=== PATIENT | male | born 1955 | race Caucasian/White ===

== ENCOUNTER 2019-11-29 10:20 | Emergency (ER) | payer MEDICAID ==
[~2019-11-29] VITALS: Ht 170.2 cm; Wt 81.6 kg
--- NOTE | 2019-11-29 10:44 | Emergency Room Report ---
History of Present Illness General Chief Complaint: Palpitations Source: Patient Present Illness HPI 64-year-old male history of hypertension, rheumatoid, presents with new onset atrial fibrillation with RVR, symptoms started today he felt palpitations and his heart rate racing, no known aggravating or alleviating factors severity is moderate, constant patient denies any chest pain, no shortness of breath no nausea no vomiting, he was seen by his primary care doctor and brought in due to heart rate greater than 150 Allergies: Coded Allergies: No Known Allergies (Unverified , 11/29/19) Patient History Past Medical History: see triage record Reviewed Nursing Documentation: PMH: Agreed; PSxH: Agreed Review of Systems All Other Systems: negative except mentioned in HPI Physical Exam Sp02 EP Interpretation: reviewed, normal General Appearance: well appearing, no apparent distress, alert Head: normocephalic, atraumatic Eyes: bilateral eye PERRL, bilateral eye EOMI ENT: uvula midline, moist mucus membranes Neck: supple, thyroid normal, supple/symm/no masses Respiratory: lungs clear, no respiratory distress, no retraction, no accessory muscle use Cardiovascular #1: normal peripheral pulses, no edema, no gallop, no murmur, tachycardia, irregularly irregular Gastrointestinal: non tender, soft, no guarding, no rebound Musculoskeletal: normal inspection Neurologic: alert, oriented x3 Psychiatric: mood/affect normal Skin: no rash, warm/dry Procedures Critical Care Time Critical Care Time Given the critical condition in which the patient arrived, the patient was immediately assessed by myself and the nurse, and cardiac monitoring initiated due to the potential for rapid decompensation of the patient's clinical condition. During the course of the patient's stay, I spent a considerable amount of time at the bedside performing serial re-evaluations of the patient's hemodynamic and clinical status because of the recognized potential threat to life or limb in this condition. I then had a chance to review not only all of the available current laboratory and radiographic studies obtained today, but I also reviewed old records available to me at the time. Additionally, any ancillary information available including insole channeler records were reviewed. Sequential vital signs were obtained. Critical Care time of 33 minutes was performed exclusive of billable procedures. Medical Decision Making Diagnostic Impression: Primary Impression: Atrial fibrillation with RVR ER Course 64-year-old male presents with new onset atrial fibrillation, with RVR, patient given fluids, diltiazem, Plan for admission and work-up, blood work drawn Patient given diltiazem 30 mg with significant improvement in heart rate, heart rate dropped down to 110, to 90s Reevaluation at 11:56 AM patient states upon admission that he needs to take care of some errands before he can be admitted he states he will come back in 2 hours patient states he wants to leave AGAINST MEDICAL ADVICE The patient has requested to leave the ED against medical advice. The patient reason(s) for leaving include, but are not limited to, the following:"has to take care of home errands before he can be admitted"I believe this patient is of sound mind and competent to refuse medical care. The patient is responding and asking questions appropriately. The patient is oriented to person, place and time. The patient is not psychotic, delusional, suicidal, homicidal or hallucinating. The patient demonstrates a normal mental capacity to make decisions regarding their healthcare. The patient is clinically sober and does not appear to be under the influence of any illicit drugs at this time. The patient has been advised of the risks, in layman terms, of leaving AMA which include, but are not limited to , coma, permanent disability, loss of current lifestyle, delay in diagnosis. Alternatives have been offered - the patient remains steadfast in their wish to leave. The patient has been advised that should they change their mind they are welcome to return to this hospital, or any other, at any time. The patient understands that in no way does an AMA discharge mean that I do not want them to have the best medical care available. To this end, I have provided appropriate prescriptions, referrals, and discharge instructions. The patient did sign AMA paperwork. The above discussion was witnessed by another member of staff. Laboratory Tests Test 11/29/19 10:45 11/29/19 11:25 White Blood Count 10.5 K/UL (4.8-10.8) Red Blood Count 4.36 M/UL (4.70-6.10) L Hemoglobin 12.6 G/DL (14.2-18.0) L Hematocrit 40.6 % (42.0-52.0) L Mean Corpuscular Volume 93 FL (80-99) Mean Corpuscular Hemoglobin 29.0 PG (27.0-31.0) Mean Corpuscular Hemoglobin Concent 31.1 G/DL (32.0-36.0) L Red Cell Distribution Width 14.4 % (11.6-14.8) Platelet Count 338 K/UL (150-450) Mean Platelet Volume 7.9 FL (6.5-10.1) Neutrophils (%) (Auto) 81.0 % (45.0-75.0) H Lymphocytes (%) (Auto) 11.4 % (20.0-45.0) L Monocytes (%) (Auto) 5.5 % (1.0-10.0) Eosinophils (%) (Auto) 0.4 % (0.0-3.0) Basophils (%) (Auto) 1.7 % (0.0-2.0) Prothrombin Time 10.7 SEC (9.30-11.50) Prothrombin Time INR 1.0 (0.9-1.1) Activated Partial Thromboplast Time 24 SEC (23-33) Sodium Level 142 MMOL/L (136-145) Potassium Level 4.4 MMOL/L (3.5-5.1) Chloride Level 102 MMOL/L (98-107) Carbon Dioxide Level 29 MMOL/L (21-32) Anion Gap 11 mmol/L (5-15) Blood Urea Nitrogen 57 mg/dL (7-18) H Creatinine 2.4 MG/DL (0.55-1.30) H Estimated Glomerular Filtration Rate 27.6 mL/min (>60) Glucose Level 214 MG/DL (74-106) H Calcium Level 9.9 MG/DL (8.5-10.1) Total Bilirubin 0.2 MG/DL (0.2-1.0) Aspartate Amino Transferase (AST) 15 U/L (15-37) Alanine Aminotransferase (ALT) 45 U/L (12-78) Alkaline Phosphatase 47 U/L (46-116) Troponin I 0.024 ng/mL (0.000-0.056) Total Protein 7.8 G/DL (6.4-8.2) Albumin 3.4 G/DL (3.4-5.0) Globulin 4.4 g/dL Albumin/Globulin Ratio 0.8 (1.0-2.7) L Thyroid Stimulating Hormone (TSH) 0.413 uiU/mL (0.358-3.740) Free Thyroxine 1.14 NG/DL (0.76-1.46) Free Triiodothyronine 2.4 pg/mL (2.3-4.2) Urine Color Yellow Urine Appearance Clear Urine pH 5 (4.5-8.0) Urine Specific [place] 1.020 (1.005-1.035) Urine Protein 2+ (NEGATIVE) H Urine Glucose (UA) Negative (NEGATIVE) Urine Ketones Negative (NEGATIVE) Urine Blood 3+ (NEGATIVE) H Urine Nitrite Negative (NEGATIVE) Urine Bilirubin Negative (NEGATIVE) Urine Urobilinogen Normal MG/DL (0.0-1.0) Urine Leukocyte Esterase Negative (NEGATIVE) Urine RBC 2-4 /HPF (0 - 0) H Urine WBC 0 /HPF (0 - 0) Urine Squamous Epithelial Cells Occasional /LPF Urine Uric Acid Crystals Few /LPF (NONE) H Urine Bacteria Occasional /HPF (NONE) Urine Opiates Screen Negative (NEGATIVE) Urine Barbiturates Screen Negative (NEGATIVE) Phencyclidine (PCP) Screen Negative (NEGATIVE) Urine Amphetamines Screen Negative (NEGATIVE) Urine Benzodiazepines Screen Negative (NEGATIVE) Urine Cocaine Screen Negative (NEGATIVE) Urine Marijuana (THC) Screen Negative (NEGATIVE) EKG Diagnostic Results EKG Time: 10:33 EP Interpretation: Afib with RVR, rate 161, QTc 471, normal axis, no acute ST elev Rhythm Strip Diag. Results Rhythm Strip Time: 10:47 EP Interpretation: yes Rate: 154 Rhythm: other - afib w/ rvr Chest X-Ray Diagnostic Results Chest X-Ray Diagnostic Results : Chest X-Ray Ordered: Yes # of Views/Limited/Complete: 1 View Indication: Chest Pain EP Interpretation: Yes Interpretation: no consolidation, no effusion, no pneumothorax, no acute cardiopulmonary disease Impression: No acute disease Electronically Signed by: Jessú Navarro MD Disposition: AGAINST MEDICAL ADVICE Condition: Serious Referrals: [facility] Patient Instructions: Atrial Fibrillation, [id number] Additional Instructions: The patient was provided with discharge instructions, notified to follow-up with a primary care doctor and or specialist in the next 24-48 hours, and to return to the ED if they have worsening of their symptoms. Please note that this report is being documented using [employer] technology. This can lead to erroneous entry secondary to incorrect interpretation by the dictating instrument. Jesús Navarro MD Nov 29, 2019 10:44
[2019-11-29] MEDS ORDERED: dilTIAZem HCl 25mg/5ml Inj IVP ONE ×3 (10:45→11:30)
[2019-11-29] MEDS ORDERED: dilTIAZem HCl CD 120mg cap ORAL ONE (10:45)
[2019-11-29 10:52] VITALS: BP 157/103
[2019-11-29 11:09] LABS: BASOPHILS % (AUTO) 1.7 % (0.0-2.0); EOSINOPHILS % (AUTO) 0.4 % (0.0-3.0); HEMATOCRIT 40.6 % (42.0-52.0); HEMOGLOBIN 12.6 G/DL (14.2-18.0); LYMPHOCYTES % (AUTO) 11.4 % (20.0-45.0); MEAN CORPUSCULAR VOLUME 93 FL (80-99); MONOCYTES % (AUTO) 5.5 % (1.0-10.0); PLATELET COUNT 338 K/UL (150-450); RED BLOOD COUNT 4.36 M/UL (4.70-6.10); RED CELL DISTRIBUTION WIDTH 14.4 % (11.6-14.8); WHITE BLOOD COUNT 10.5 K/UL (4.8-10.8)
[2019-11-29 11:17] LABS: ANION GAP 11 mmol/L (5-15); BLOOD UREA NITROGEN 57 mg/dL (7-18); CALCIUM 9.9 MG/DL (8.5-10.1); CARBON DIOXIDE 29 MMOL/L (21-32); CHLORIDE 102 MMOL/L (98-107); CREATININE 2.4 MG/DL (0.55-1.30); POTASSIUM 4.4 MMOL/L (3.5-5.1); SODIUM 142 MMOL/L (136-145)
[2019-11-29 11:30] LABS: ALANINE AMINOTRANSFERASE 45 U/L (12-78); ALBUMIN 3.4 G/DL (3.4-5.0); ALBUMIN/GLOBULIN RATIO 0.8 (1.0-2.7); ALKALINE PHOSPHATASE 47 U/L (46-116); ASPARTATE AMINO TRANSFERASE 15 U/L (15-37); BILIRUBIN,TOTAL 0.2 MG/DL (0.2-1.0)
[2019-11-29 11:40] LABS: APPEARANCE,URINE CLEAR; BILIRUBIN, URINE NEGATIVE (NEGATIVE); COLOR,URINE YELLOW; GLUCOSE, URINE (UA) NEGATIVE (NEGATIVE); KETONES,URINE NEGATIVE (NEGATIVE); LEUKOCYTE ESTERASE ,URINE NEGATIVE (NEGATIVE); NITRITE,URINE NEGATIVE (NEGATIVE); PH,URINE 5 (4.5-8.0); PROTEIN,URINE 2+ (NEGATIVE); UROBILINOGEN,URINE NORMAL MG/DL (0.0-1.0)
--- NOTE | 2019-11-29 11:43 | Diagnostic Imaging Report ---
Indication: Chest pain Technique: One view of the chest Comparison: none Findings: Lungs and pleural spaces are clear. Heart size is normal. Impression: No acute process
[2019-11-29 11:58] VITALS: BP 136/86
--- NOTE | 2019-11-29 12:43 | Consultation ---
History of Present Illness General Chief Complaint: Palpitations Present Illness Allergies: Coded Allergies: No Known Allergies (Unverified , 11/29/19) Medication History Scheduled Leflunomide (Leflunomide), 20 MG PO DAILY, (Reported) Metformin Hcl* (Metformin Hcl*), 1,000 MG ORAL TWICE A DAY, (Reported) Patient History Healthcare decision maker Resuscitation status Advanced Directive on File Physical Exam Last 24 Hour Vital Signs Date Time Temp Pulse Resp B/P (MAP) Pulse Ox O2 Delivery O2 Flow Rate FiO2 11/29/19 11:58 98.0 113 20 136/86 100 Room Air 11/29/19 11:34 118 136/86 11/29/19 11:09 139 156/88 11/29/19 10:52 97.5 159 18 157/103 100 Room Air 11/29/19 10:49 159 157/103 11/29/19 10:49 159 157/103 11/29/19 10:47 97.5 160 18 131/95 (107) 99 Room Air Laboratory Tests Test 11/29/19 10:45 11/29/19 11:25 White Blood Count 10.5 K/UL (4.8-10.8) Red Blood Count 4.36 M/UL (4.70-6.10) L Hemoglobin 12.6 G/DL (14.2-18.0) L Hematocrit 40.6 % (42.0-52.0) L Mean Corpuscular Volume 93 FL (80-99) Mean Corpuscular Hemoglobin 29.0 PG (27.0-31.0) Mean Corpuscular Hemoglobin Concent 31.1 G/DL (32.0-36.0) L Red Cell Distribution Width 14.4 % (11.6-14.8) Platelet Count 338 K/UL (150-450) Mean Platelet Volume 7.9 FL (6.5-10.1) Neutrophils (%) (Auto) 81.0 % (45.0-75.0) H Lymphocytes (%) (Auto) 11.4 % (20.0-45.0) L Monocytes (%) (Auto) 5.5 % (1.0-10.0) Eosinophils (%) (Auto) 0.4 % (0.0-3.0) Basophils (%) (Auto) 1.7 % (0.0-2.0) Prothrombin Time 10.7 SEC (9.30-11.50) Prothromb Time International Ratio 1.0 (0.9-1.1) Activated Partial Thromboplast Time 24 SEC (23-33) Sodium Level 142 MMOL/L (136-145) Potassium Level 4.4 MMOL/L (3.5-5.1) Chloride Level 102 MMOL/L (98-107) Carbon Dioxide Level 29 MMOL/L (21-32) Anion Gap 11 mmol/L (5-15) Blood Urea Nitrogen 57 mg/dL (7-18) H Creatinine 2.4 MG/DL (0.55-1.30) H Estimat Glomerular Filtration Rate 27.6 mL/min (>60) Glucose Level 214 MG/DL (74-106) H Calcium Level 9.9 MG/DL (8.5-10.1) Total Bilirubin 0.2 MG/DL (0.2-1.0) Aspartate Amino Transf (AST/SGOT) 15 U/L (15-37) Alanine Aminotransferase (ALT/SGPT) 45 U/L (12-78) Alkaline Phosphatase 47 U/L (46-116) Troponin I 0.024 ng/mL (0.000-0.056) Total Protein 7.8 G/DL (6.4-8.2) Albumin 3.4 G/DL (3.4-5.0) Globulin 4.4 g/dL Albumin/Globulin Ratio 0.8 (1.0-2.7) L Thyroid Stimulating Hormone (TSH) 0.413 uiU/mL (0.358-3.740) Free Thyroxine 1.14 NG/DL (0.76-1.46) Free Triiodothyronine 2.4 pg/mL (2.3-4.2) Urine Color Yellow Urine Appearance Clear Urine pH 5 (4.5-8.0) Urine Specific [place] 1.020 (1.005-1.035) Urine Protein 2+ (NEGATIVE) H Urine Glucose (UA) Negative (NEGATIVE) Urine Ketones Negative (NEGATIVE) Urine Blood 3+ (NEGATIVE) H Urine Nitrite Negative (NEGATIVE) Urine Bilirubin Negative (NEGATIVE) Urine Urobilinogen Normal MG/DL (0.0-1.0) Urine Leukocyte Esterase Negative (NEGATIVE) Urine RBC 2-4 /HPF (0 - 0) H Urine WBC 0 /HPF (0 - 0) Urine Squamous Epithelial Cells Occasional /LPF Urine Uric Acid Crystals Few /LPF (NONE) H Urine Bacteria Occasional /HPF (NONE) Urine Opiates Screen Negative (NEGATIVE) Urine Barbiturates Screen Negative (NEGATIVE) Phencyclidine (PCP) Screen Negative (NEGATIVE) Urine Amphetamines Screen Negative (NEGATIVE) Urine Benzodiazepines Screen Negative (NEGATIVE) Urine Cocaine Screen Negative (NEGATIVE) Urine Marijuana (THC) Screen Negative (NEGATIVE) Height (Feet): 5 Height (Inches): 7.00 Weight (Pounds): 180 Berenice Pimentel M.D. Nov 29, 2019 12:43
[2019-11-29] MEDS ORDERED: METFORMIN HCL1000 M1 ORAL (16:20)
[2019-11-29] MEDS ORDERED: LEFLUNOMIDE20 MG PO (16:20)
== END 2019-11-29 11:58 | disposition left against medical advice (07) ==
LOC: EMR 10:45 → CANBEDREQ 12:11
DX: I48.20 Chronic atrial fibrillation, unspecified (principal); R07.9 Chest pain, unspecified
CPT/HCPCS: 36415; 71045; 80053; 80307; 81003; 84439; 84443; 84481; 84484; 85025; 85610; 85730; 93005; 96361; 96374; 96376; J7030; Z7502; 99291

== ENCOUNTER 2019-11-29 13:12 | Inpatient (IN) | payer MEDICAID ==
[~2019-11-29] VITALS: Ht 165.1 cm; Wt 82.6 kg
[2019-11-29] VITALS (14 sets, daily range): BP systolic 114–172; BP diastolic 61–128
--- NOTE | 2019-11-29 13:24 | Emergency Room Report ---
History of Present Illness General Chief Complaint: Palpitations Source: Patient, Medical Record Present Illness HPI 64-year-old male history of hypertension, rheumatoid, presents with new onset atrial fibrillation with RVR, symptoms started today he felt palpitations and his heart rate racing, no known aggravating or alleviating factors severity is moderate, constant patient denies any chest pain, no shortness of breath no nausea no vomiting, he was seen by his primary care doctor and brought in due to heart rate greater than 150 Patient returns after AMA and getting his home affairs in order Allergies: Coded Allergies: No Known Allergies (Unverified , 11/29/19) COVID-19 Screening Contact w/high risk pt: No Experienced COVID-19 symptoms?: No COVID-19 Testing performed BOOM OPERATOR: No Patient History Past Medical History: see triage record Reviewed Nursing Documentation: PMH: Agreed; PSxH: Agreed Nursing Documentation-PMH Past Medical History: No History, Except For Hx Cardiac Problems: No - Rheumatoid arthritis Hx Hypertension: No Hx Pacemaker: No Hx Asthma: No Hx COPD: No Hx Diabetes: Yes Hx Cancer: No Hx Gastrointestinal Problems: No Hx Dialysis: No History Of Psychiatric Problem: No Hx Neurological Problems: No Hx Cerebrovascular Accident: No Hx Seizures: No Review of Systems All Other Systems: negative except mentioned in HPI Physical Exam Vital Signs Date Time Temp Pulse Resp B/P (MAP) Pulse Ox O2 Delivery O2 Flow Rate FiO2 11/29/19 13:16 98.6 129 18 152/86 (108) 96 Room Air Sp02 EP Interpretation: reviewed, normal General Appearance: well appearing, no apparent distress, alert Head: normocephalic, atraumatic Eyes: bilateral eye PERRL, bilateral eye EOMI ENT: uvula midline, moist mucus membranes Neck: supple, thyroid normal, supple/symm/no masses Respiratory: lungs clear, no respiratory distress, no retraction, no accessory muscle use Cardiovascular #1: normal peripheral pulses, no edema, no gallop, no murmur, tachycardia, irregularly irregular Gastrointestinal: non tender, soft, no guarding, no rebound Musculoskeletal: normal inspection Neurologic: alert, oriented x3 Psychiatric: mood/affect normal Skin: no rash, warm/dry Medical Decision Making Diagnostic Impression: Primary Impression: Atrial fibrillation with RVR ER Course 64-year-old male presents with atrial fibrillation with RVR returns from his AMA , patient given diltiazem 20 mg, plan for admission to the telemetry unit Patient admitted to Dr. Pimentel, was sent in by Dr. Pimentel for admission Reevaluation 2:29 PM after 20mg of Diltiazem Patient significantly improved HR 107 Patient also with elevated Cr. could be chronic no other labs. will defer to pcp for further management possible IVÁN EKG Diagnostic Results EKG Time: 13:37 EP Interpretation: A. fib, heart rate [address] elevations, normal axis Rhythm Strip Diag. Results Rhythm Strip Time: 13:56 EP Interpretation: yes Rate: 127 Rhythm: other - afib rvr Last Vital Signs Date Time Temp Pulse Resp B/P (MAP) Pulse Ox O2 Delivery O2 Flow Rate FiO2 11/29/19 13:16 98.6 129 18 152/86 (108) 96 Room Air Disposition: ADMITTED INPATIENT Condition: Critical Jesús Navarro MD Nov 29, 2019 13:23
--- NOTE | 2019-11-29 13:26 | NUR ---
ED Nurse Note: Pt from home and came back for admission. Pt was seen here at [facility] ER this morning due to his heart "racing" and palpitation but signed AMA for personal reasons. Pt came back AAO x4, ambulates with steady gait with no respiratory distress. Denies dizziness or CP.
[2019-11-29] MEDS ORDERED: dilTIAZem HCl 25mg/5ml Inj IVP ONE (14:00)
--- NOTE | 2019-11-29 15:09 | NUR ---
ED Nurse Note: Pt remains calm and with no respiratoryd distress. HR at 110-125 at this time.
--- NOTE | 2019-11-29 15:21 | NUR ---
ED Nurse Note: [place] and juice provided to pt. Dr Corey marcos for pt to eat and drink.
--- NOTE | 2019-11-29 16:07 | NUR ---
ED Nurse Note: Report given to Liza ELLINGTON of telemetry unit.
[2019-11-29] MEDS ORDERED: METFORMIN HCL1000 M1 ORAL (16:20)
[2019-11-29] MEDS ORDERED: LEFLUNOMIDE20 MG PO (16:20)
[2019-11-29] MEDS ORDERED: dilTIAZem Premix 125mg/125ml 125 ML IVPB SCH (16:30)
[2019-11-29] MEDS ORDERED: Nitroglycerin Subl 0.4mg tab SL PRN (16:30)
[2019-11-29] MEDS ORDERED: Milk of Magnesia 30ml Ud ORAL PRN (16:30)
--- NOTE | 2019-11-29 17:00 | NUR ---
ED Nurse Note: SPOKE WITH DR. TERRY AND VERIFIED THE CARDIZEM DRIP ORDER AND WAS TOLD HE WILL CHANGE IT
--- NOTE | 2019-11-29 17:02 | History and Physical ---
History of Present Illness General Date patient seen: Nov 29, 2019 Time patient seen: 15:00 Reason for Hospitalization: Palpitations Present Illness HPI 64 year old gentleman with a past medical history of rheumatoid arthritis and non insulin dependant DM comes to the hospital from PCP office with palpitations found to be in A. fib RVR. He first noticed palpitations about a month ago that became gradually more frequent. This prompted him to go see his PCP today. In the office his heart rate was found to be in the 150s. Patient states he has never been on a medication for HTN but uses some of his family member's medication if his blood pressure measures high. He's had no recent illnesses and his po intake has been normal. He has no chest pain or swelling in the legs. His PCP manages his RA with Leflunomide and DM with Metformin. In the ED patient was given 20mg od diltiazem IV push and his heart rate is now in the 130s. Allergies: Coded Allergies: No Known Allergies (Unverified , 11/29/19) COVID-19 Screening Contact w/high risk pt: No Experienced COVID-19 symptoms?: No Medication History Scheduled Leflunomide (Leflunomide), 20 MG PO DAILY, (Reported) Metformin Hcl* (Metformin Hcl*), 1,000 MG ORAL TWICE A DAY, (Reported) Patient History History Provided By: Patient Healthcare decision maker N Resuscitation status Full code Advanced Directive on File Past Medical/Surgical History Past Medical/Surgical History: (1) Diabetes (2) Rheumatoid arthritis Family History Family History: FH: myocardial infarction Social History Social History: (1) Former cigarette smoker Review of Systems Constitutional: Reports: no symptoms Eye: Reports: no symptoms Respiratory: Reports: no symptoms Cardiovascular: Reports: palpitations; Denies: chest pain, edema, syncope, PND Gastrointestinal: Reports: no symptoms Genitourinary: Reports: no symptoms Musculoskeletal: Reports: other - arthritis; Denies: no symptoms Psychiatric: Reports: no symptoms Neurological: Reports: no symptoms Endocrine: Reports: no symptoms Hematologic/Lymphatic: Reports: no symptoms Physical Exam General Appearance: no apparent distress, alert, overweight Lines, tubes and drains: peripheral HEENT: normocephalic, atraumatic, PERRL Neck: normal alignment, supple Respiratory/Chest: chest wall non-tender, lungs clear, normal breath sounds, no respiratory distress, no accessory muscle use Cardiovascular/Chest: no gallop/murmur, no JVD, tachycardia, arrhythmia, irregularly irregular Abdomen: non tender, soft, no organomegaly, no mass Extremities: normal range of motion, non-tender, normal inspection Skin Exam: normal pigmentation, warm/dry Neurologic: access assoc II-XII grossly normal, alert, oriented x 3, responsive, normal mood/affect Last 24 Hour Vital Signs Date Time Temp Pulse Resp B/P (MAP) Pulse Ox O2 Delivery O2 Flow Rate FiO2 11/29/19 15:08 97.9 118 15 114/102 100 Room Air 11/29/19 14:00 136 132/80 11/29/19 13:26 98.6 136 16 132/80 99 Room Air 11/29/19 13:16 98.6 129 18 152/86 (108) 96 Room Air Height (Feet): 5 Height (Inches): 7.00 Weight (Pounds): 170 Medications Current Medications Medications (Trade) Dose Ordered Sig/Celia Route PRN Reason Start Time Stop Time Status Last Admin Dose Admin Acetaminophen (Tylenol) 650 mg Q4H PRN ORAL Mild Pain (Pain Scale 1-3) 11/29/19 16:30 12/29/19 16:29 UNV Acetaminophen (Tylenol) 650 mg Q4H PRN ORAL Temp >100.5 11/29/19 16:30 12/29/19 16:29 UNV Bisacodyl (Dulcolax) 10 mg DAILYPRN PRN RECTAL Constipation 11/29/19 16:30 02/27/20 16:29 UNV Dextrose (Dextrose 50%) 25 ml Q30M PRN IV Hypoglycemia 11/29/19 16:30 02/27/20 16:29 UNV Dextrose (Dextrose 50%) 25 ml Q30M PRN IV Hypoglycemia 11/29/19 16:30 02/27/20 16:29 UNV Dextrose (Dextrose 50%) 50 ml Q30M PRN IV Hypoglycemia 11/29/19 16:30 02/27/20 16:29 UNV Dextrose (Dextrose 50%) 50 ml Q30M PRN IV Hypoglycemia 11/29/19 16:30 02/27/20 16:29 UNV Magnesium Hydroxide (Mom) 30 ml HSPRN PRN ORAL Constipation 11/29/19 16:30 12/29/19 16:29 UNV Nitroglycerin (Ntg) 0.4 mg Q5M PRN SL Prn Chest Pain 11/29/19 16:30 12/29/19 16:29 UNV Ondansetron HCl (Zofran) 4 mg Q6H PRN IVP Nausea & Vomiting 11/29/19 16:30 12/29/19 16:29 UNV Sodium Chloride 1,000 ml @ 125 mls/hr Q8H IVLG 11/29/19 17:22 12/29/19 17:21 UNV Assessment/Plan Problem List: (1) Atrial fibrillation with RVR ICD Codes: I48.91 - Unspecified atrial fibrillation SNOMED: 904058631064413 (2) CKD (chronic kidney disease) ICD Codes: N18.9 - Chronic kidney disease, unspecified SNOMED: 779437679 (3) Diabetes ICD Codes: E11.9 - Type 2 diabetes mellitus without complications SNOMED: 33201952 (4) Rheumatoid arthritis ICD Codes: M06.9 - Rheumatoid arthritis, unspecified SNOMED: 71672486 (5) Anemia in CKD (chronic kidney disease) ICD Codes: N18.9 - Chronic kidney disease, unspecified; D63.1 - Anemia in chronic kidney disease SNOMED: 967399343 Assessment/Plan: 64 year old gentleman with a past medical history of rheumatoid arthritis and non insulin dependant DM comes to the hospital from PCP office with palpitations found to be in A. fib RVR. #A. Fib RVR #Palpitations #HTN -Admit to telemetry -Not a candidate for cardioversion -Received 20mg of diltiazem IV push -Continue diltiazem gtt for goal HR under 110 -Start Eliquis 5mg BID for CADsVASc 2 -2D echo to evaluate for structural heart disease. -CMP and magnesium - repeat electrolytes -BNP -Consult to cardiology #DM type 2 -ISS -Carbconsistent Diet -HgA1c #IVÁN on CKD - Hypertensive Vs. Diabetic Nephropathy #Anemia of CKD -Hold nephrotoxic medications -Urine studies -Nephrology recommendations #Rheumatoid arthritis -Continue home meds I spent 72 minutes on this admission. Face to face time with patient, coordinated with consultants. Discussed with nursing staff. Independent viewing of imaging. Chart review. Nicolas Garibay M.D. Nov 29, 2019 17:02
--- NOTE | 2019-11-29 17:11 | NUR ---
ED Nurse Note: Spoken to Dr Garibay and reported pt's HR still going up to 140-160. Pt has no SOB or distress. Waiting for new orders from Dr Garibay.
[2019-11-29] MEDS ORDERED: dilTIAZem HCl 25mg/5ml Inj IVP SCH (17:15)
--- NOTE | 2019-11-29 17:39 | Cardiac Electrophysiology PN ---
Subjective Subjective [id number] Objective Last 24 Hour Vital Signs Date Time Temp Pulse Resp B/P (MAP) Pulse Ox O2 Delivery O2 Flow Rate FiO2 11/29/19 17:20 150 114/102 11/29/19 15:08 97.9 118 15 114/102 100 Room Air 11/29/19 14:00 136 132/80 11/29/19 13:26 98.6 136 16 132/80 99 Room Air 11/29/19 13:16 98.6 129 18 152/86 (108) 96 Room Air Tyler Pacsual MD Nov 29, 2019 17:39
[2019-11-29] MEDS ORDERED: Eliquis 5mg tablet ORAL SCH (18:00)
[2019-11-29] MEDS: dilTIAZem Premix 125mg/125ml 125 ML IVPB SCH (18:23)
--- NOTE | 2019-11-29 18:49 | NUR ---
ED Nurse Note: Report given to Leeroy ELLINGTON of ICU.
--- NOTE | 2019-11-29 18:50 | NUR ---
NURSE NOTES: Received report from CHANDANA Renner @ ED.
--- NOTE | 2019-11-29 19:10 | NUR ---
HAND-OFF: Report given to caron ELLINGTON.
--- NOTE | 2019-11-29 19:22 | NUR ---
HAND-OFF: Report given to CHANDANA Herrera. Endorsed plan of care.
--- NOTE | 2019-11-29 19:47 | NUR ---
NURSE NOTES: Report received from CHANDANA Umaña. patient arrived to unit 1944, able to transfer self from [facility] to bed. patient AOx4 denies pain. oxygen saturation 88% on room air, patient placed on 2L NC oxgen saturation 95%. HR 166 afib w/RVR on monitor. Right AC #20 clean dry intact. Cardizem drip continued from ER at 10mg/hr. skin warm dry intact with left arm ecchymosis noted from prior venipuncture. patient able to void with urinal, yellow urine noted. Blood sugar 216, asymptomatic. iphone 5s at bedside with clothes in belongings bag. will continue plan of care.
[2019-11-29] MEDS ORDERED: NovoLOG Insulin Flexpen SUBQ SCH (21:00)
[2019-11-29] MEDS: metFORMIN 500mg tab ORAL SCH (21:31)
[2019-11-29 21:32] LABS: % IRON SATURATION 13 % (15-50); IRON 29 ug/dL (50-175); TOTAL IRON BINDING CAPACITY 226 ug/dL (250-450)
[2019-11-29 21:41] LABS: CHOLESTEROL 354 MG/DL (< 200); HDL CHOLESTEROL 46 MG/DL (40-60); TRIGLYCERIDES 371 MG/DL (30-150)
--- NOTE | 2019-11-29 22:00 | NUR ---
NURSE NOTES: patient awake alert oriented x4. oxygen saturation 96% on 2L NC. right arm #20 running Cardizem 15mg/hr, NS @125ml/hr asymptomatic. patient refused to have insulin coverage for blood sugar of 216, stating he will only take metformin po. patient educated on risks to kidney function with long-term use. patient verbalized understanding. Dr. Garibay stated ok to give patient metformin with patient understanding risks. patient repositioned self. will continue to monitor.
--- NOTE | 2019-11-29 22:00 | Consultation ---
DATE OF CONSULTATION: 11/29/2019 CARDIOLOGY CONSULTATION CONSULTING PHYSICIAN: Tyler Pascual MD REFERRING PHYSICIAN: Jacob Price MD ADDITIONAL REFERRING PHYSICIAN: Berenice Pimentel MD REASON FOR CONSULTATION: Atrial fibrillation with rapid ventricular response. HISTORY OF PRESENT ILLNESS: The patient is a 64-year-old gentleman with history of hypertension, [id number] diabetes, and rheumatoid arthritis, who came to the hospital from Dr. Pimentel's office with palpitation. The patient was found to be in atrial fibrillation with rapid ventricular response. The patient noticed palpitation about a month ago that became gradually worse. The patient was noted to have heart rate of 115 at doctor's office. The patient denies having any medication for high blood pressure even though sometimes blood pressure medication when blood pressure is high. The patient denies any prior atrial fibrillation, has not been on anticoagulation. In the emergency room, the patient received 20 mg of IV Cardizem and heart rate improved to 130s. The patient left against medical advice, but came back couple of hours later with similar symptoms. REVIEW OF SYSTEMS: Negative other than what is mentioned in the history of present illness. PAST MEDICAL HISTORY: As mentioned above. FAMILY HISTORY: Noncontributory. SOCIAL HISTORY: He lives at home. Does not smoke or drink alcohol. MEDICATIONS: At home include metformin 1000 mg b.i.d. and leflunomide 20 mg daily. PHYSICAL EXAMINATION: VITAL SIGNS: Show blood pressure of 114/102, pulse is 150, respirations 18, and afebrile. HEAD AND NECK: Showed no JVD. LUNGS: Decreased breath sounds. CARDIOVASCULAR: Irregular S1 and S2 with no gallop or murmur. ABDOMEN: Soft. EXTREMITIES: A 1+ pitting edema. LABORATORY AND DIAGNOSTIC DATA: His initial EKG showed atrial flutter with rapid ventricular response, rate of 150. Sodium 142, potassium 4.4, BUN of , creatinine 2.4, glucose of 214. White count is 10.5, hemoglobin 12.7, hematocrit of 40, and platelet count 338. Urine toxicology is negative. ASSESSMENT AND PLAN: 1. Atrial flutter with rapid ventricular response. The patient was in and out of flutter and fibrillation. Start the patient on Cardizem drip 10 mg/hour. I will start the patient on Eliquis 5 mg b.i.d. I will get the echocardiogram and completely rule out MD protocol. 2. Hypertension. Continue Cardizem drip. 3. Diabetes, on metformin. 4. Renal failure with creatinine of 2.4. 5. Rheumatoid arthritis. Thank you very much for allowing me to participate in the care of this patient. Please do not hesitate to contact me for any questions regarding my evaluation. The case was discussed with Dr. Nicolas Garibay as well as Dr. Jesús Navarro. Sincerely, Tyler Pascual M.D. DR: Angelic JOB#: [id number] CC:
--- NOTE | 2019-11-29 23:47 | NUR ---
NURSE NOTES: Spoke with Elayne, to page Dr. Pimentel to report abnormal lab values. message left. awaiting call back.
[2019-11-30] VITALS (25 sets, daily range): BP systolic 105–174; BP diastolic 55–128
--- NOTE | 2019-11-30 | NUR ---
NURSE NOTES: patient asleep arousable to name oriented x4. oxygen saturation 97% on 2L NC. BP153/67 HR 105 Afib on monitor and afebrile. right arm #20 running Cardizem 15mg/hr, NS @125ml/hr asymptomatic. Dr. Pimentel paged for abnormal labs. Dr. Stoll returned page, aware of abnormal labs, order received read back and carried out. patient repositioned self. will continue to monitor.
--- NOTE | 2019-11-30 02:00 | NUR ---
NURSE NOTES: patient awake, oriented x4. oxygen saturation 97% on 2L NC. BP124/77 HR 96 Afib on monitor and afebrile. right arm #20 running cardizem 15mg/hr, NS @125ml/hr, patient receiving second bag of magnesium sulfate, asymptomatic. patient repositioned self. will continue to monitor.
[2019-11-30] MEDS: dilTIAZem Premix 125mg/125ml 125 ML IVPB SCH ×2 (02:50→12:24)
--- NOTE | 2019-11-30 04:00 | NUR ---
NURSE NOTES: patient asleep, arousable to name and oriented x4. oxygen saturation 96% on 2L NC. BP128/95 HR 92 Afib on monitor and afebrile. right arm #20 running cardizem 15mg/hr, NS @125ml/hr, asymptomatic. patient refused morning labs to be drawn at this time, agreed to have blood drawn at 0800. patient repositioned self. will continue to monitor.
--- NOTE | 2019-11-30 06:00 | NUR ---
NURSE NOTES: patient awake oriented x4. oxygen saturation 97% on 2L NC. BP142/73 HR 98 Afib on monitor. right AC #20 running cardizem 15mg/hr, NS @125ml/hr, asymptomatic. patient repositioned self. ECG done and placed in chart. will continue to monitor.
--- NOTE | 2019-11-30 07:29 | NUR ---
HAND-OFF: Report given to CHANDANA Barrera. endorsed plan of care.
--- NOTE | 2019-11-30 07:30 | NUR ---
NURSE NOTES: Received patient in bed, patient is alert awake x4 on a groundwater monitoring technician. patient's HR noted to be fluctuating from 90-105. patient is eating breakfast at the moment, instructed patient not to drink coffee, patient verbalized understanding. patient's IV site on the right AC 20 is clean, dry, and intact. patient is on cardizem drip 10mg/hr, tolerating without complication. patient breathing unlabored and even, speaking in full sentences, on 2L NC O2 sat 96% noted. call light within reach. bed in lowest position and locked.
--- NOTE | 2019-11-30 08:03 | NUR ---
NURSE NOTES: patient agreed for lab draw. called lab and spoke with Narcisa.
[2019-11-30] MEDS: metFORMIN 500mg tab ORAL SCH ×2 (08:29→17:23)
[2019-11-30] MEDS: Eliquis 2.5mg tablet ORAL SCH ×2 (08:29→17:24)
--- NOTE | 2019-11-30 08:40 | NUR ---
NURSE NOTES: 2D Echo being done at bedside.
[2019-11-30 09:03] LABS: HEMATOCRIT 36.3 % (42.0-52.0); HEMOGLOBIN 11.6 G/DL (14.2-18.0); MEAN CORPUSCULAR VOLUME 95 FL (80-99); PLATELET COUNT 299 K/UL (150-450); RED BLOOD COUNT 3.83 M/UL (4.70-6.10); RED CELL DISTRIBUTION WIDTH 15.4 % (11.6-14.8)
[2019-11-30 09:37] LABS: ANION GAP 13 mmol/L (5-15); BLOOD UREA NITROGEN 36 mg/dL (7-18); CALCIUM 8.4 MG/DL (8.5-10.1); CARBON DIOXIDE 24 MMOL/L (21-32); CHLORIDE 104 MMOL/L (98-107); CHOLESTEROL 291 MG/DL (< 200); CREATININE 1.3 MG/DL (0.55-1.30); HDL CHOLESTEROL 41 MG/DL (40-60); POTASSIUM 4.3 MMOL/L (3.5-5.1); SODIUM 141 MMOL/L (136-145); TRIGLYCERIDES 276 MG/DL (30-150)
--- NOTE | 2019-11-30 10:00 | NUR ---
Patient awake and alert - resting comfortably. fuel injection servicer shows uncontrolled A-Fib- on Cardizem drip at 10 mg/hr. VS stable- denies SOB
[2019-11-30] MEDS ORDERED: Digoxin 0.5mg/2ml Inj IVP SCH (11:15)
[2019-11-30] MEDS: dilTIAZem HCl 90mg tab ORAL SCH ×3 (11:22→23:46)
--- NOTE | 2019-11-30 12:00 | NUR ---
NURSE NOTES: patient provided with lunch and tolerated without complication.
--- NOTE | 2019-11-30 12:19 | General Progress Note ---
Assessment/Plan Problem List: (1) Atrial fibrillation with RVR ICD Codes: I48.91 - Unspecified atrial fibrillation SNOMED: 534691043959312 (2) CKD (chronic kidney disease) ICD Codes: N18.9 - Chronic kidney disease, unspecified SNOMED: 074713426 (3) Diabetes ICD Codes: E11.9 - Type 2 diabetes mellitus without complications SNOMED: 50858857 (4) Rheumatoid arthritis ICD Codes: M06.9 - Rheumatoid arthritis, unspecified SNOMED: 15996835 (5) Anemia in CKD (chronic kidney disease) ICD Codes: N18.9 - Chronic kidney disease, unspecified; D63.1 - Anemia in chronic kidney disease SNOMED: 437619105 Assessment/Plan: 64 year old gentleman with a past medical history of rheumatoid arthritis and non insulin dependant DM comes to the hospital from PCP office with palpitations found to be in A. fib RVR. #Atrial flutter #Palpitations #HTN -Not a candidate for cardioversion -Received 20mg of diltiazem IV push -Continue diltiazem gtt for goal HR under 110 -Start Eliquis 2.5mg BID for CADsVASc 2 -2D echo to evaluate for structural heart disease. -Consult to cardiology #Orthopnea #Elevated BNP -Lasix 20mg q6 x3 -2D echo -Strict Is and Os, daily weights -Fluid and salt restriction #DM type 2 - refused ISS and wants his home metformin -Carb Consistent Diet -HgA1c #IVÁN on CKD - Hypertensive Vs. Diabetic Nephropathy #Anemia of CKD -Hold nephrotoxic medications -Urine studies -Nephrology recommendations #Rheumatoid arthritis -Continue home meds I spent 35 min with majority face to face time with patient, coordinated with consultants. Discussed with nursing staff. Independent viewing of imaging. Chart review. Subjective Date patient seen: Nov 30, 2019 Time patient seen: 12:13 ROS Limited/Unobtainable: No Constitutional: Reports: no symptoms HEENT: Reports: no symptoms Cardiovascular: Reports: palpitations Respiratory: Reports: orthopnea, shortness of breath Gastrointestinal/Abdominal: Reports: no symptoms Genitourinary: Reports: no symptoms Neurologic/Psychiatric: Reports: no symptoms Endocrine: Reports: no symptoms Hematologic/Lymphatic: Reports: no symptoms Allergies: Coded Allergies: No Known Allergies (Unverified , 11/29/19) Subjective Patient complain fo SOB now on 3L O2. Some palpitations but no chest pain. Objective Last 24 Hour Vital Signs Date Time Temp Pulse Resp B/P (MAP) Pulse Ox O2 Delivery O2 Flow Rate FiO2 11/30/19 11:22 106 139/88 11/30/19 11:22 106 11/30/19 11:00 105 27 156/76 (102) 97 11/30/19 10:30 106 26 139/88 (105) 97 11/30/19 10:00 107 25 159/85 (109) 97 11/30/19 09:30 107 25 159/85 (109) 97 11/30/19 09:00 100 27 174/128 (143) 95 11/30/19 08:00 Nasal Cannula 2.0 11/30/19 08:00 100 24 151/103 (119) 97 11/30/19 08:00 109 11/30/19 07:00 104 21 147/94 (111) 97 11/30/19 06:00 88 24 142/73 (96) 97 11/30/19 05:00 94 26 134/77 (96) 96 11/30/19 04:00 91 11/30/19 04:00 Nasal Cannula 2.0 11/30/19 04:00 98.3 90 24 128/95 (106) 95 11/30/19 03:00 91 23 159/81 (107) 96 11/30/19 02:00 96 26 124/77 (93) 97 11/30/19 01:00 94 24 105/80 (88) 97 11/30/19 00:00 98.4 108 26 153/67 (95) 96 11/30/19 00:00 Nasal Cannula 2.0 11/30/19 00:00 2.0 11/30/19 00:00 146 11/29/19 23:00 114 32 155/86 (109) 98 11/29/19 22:00 123 29 135/61 (85) 96 11/29/19 21:00 130 32 160/78 (105) 95 11/29/19 20:00 Nasal Cannula 2.0 11/29/19 20:00 166 11/29/19 20:00 98.6 142 31 161/110 (127) 94 11/29/19 19:47 2.0 11/29/19 19:47 Nasal Cannula 2.0 11/29/19 19:20 98.5 148 20 169/95 99 Room Air 11/29/19 19:08 98.5 148 20 169/95 99 Room Air 11/29/19 18:53 98.5 140 15 165/89 97 Room Air 11/29/19 18:38 152 16 161/90 96 Room Air 11/29/19 18:23 98.2 152 20 154/93 99 Room Air 11/29/19 18:00 163 152/100 164 164/112 165 172/108 11/29/19 18:00 98.2 152 16 145/90 100 Room Air 11/29/19 17:20 150 114/102 11/29/19 17:00 98.2 134 17 132/95 98 Room Air 11/29/19 16:05 98.5 140 20 169/128 97 Room Air 11/29/19 16:00 98.5 130 16 122/92 100 Room Air 11/29/19 15:08 97.9 118 15 114/102 100 Room Air 11/29/19 14:00 136 132/80 11/29/19 13:26 98.6 136 16 132/80 99 Room Air 11/29/19 13:16 98.6 129 18 152/86 (108) 96 Room Air Intake and Output 11/29/19 11/30/19 19:00 07:00 Intake Total 1000 ml 2340 ml Output Total 1200 ml Balance 1000 ml 1140 ml Intake Oral 0 ml 480 ml IV Total 1000 ml 1860 ml Output Urine Total 1200 ml # Voids 5 Laboratory Tests 11/29/19 19:48: POC Whole Blood Glucose [Pending] 11/29/19 20:30: Hemoglobin A1c 7.6H, Magnesium Level 1.5L, Iron Level 29L, Total Iron Binding Capacity 226L, Percent Iron Saturation 13L, Unsaturated Iron Binding 197, Pro-B- Type Natriuretic Peptide 8326H, Triglycerides Level 371H, Cholesterol Level 354H , LDL Cholesterol 271H, HDL Cholesterol 46, Cholesterol/HDL Ratio 7.7H, Thyroid Stimulating Hormone (TSH) 0.605 11/29/19 20:45: Urine Random Total Protein 26H, Urine Random Sodium 150H, Urine Creatinine 49.1 11/30/19 08:15: Pro-B-Type Natriuretic Peptide 6084H, Triglycerides Level 276H, Cholesterol Level 291H, LDL Cholesterol 213H, HDL Cholesterol 41, Cholesterol/HDL Ratio 7.1H , Thyroid Stimulating Hormone (TSH) 0.432, White Blood Count 16.0#H, Red Blood Count 3.83L, Hemoglobin 11.6L, Hematocrit 36.3L, Mean Corpuscular Volume 95, Mean Corpuscular Hemoglobin 30.2, Mean Corpuscular Hemoglobin Concent 32.0, Red Cell Distribution Width 15.4H, Platelet Count 299, Mean Platelet Volume 8.5, Neutrophils (%) (Auto) , Lymphocytes (%) (Auto) , Monocytes (%) (Auto) , Eosinophils (%) (Auto) , Basophils (%) (Auto) , Differential Total Cells Counted 100, Neutrophils % (Manual) 83H, Lymphocytes % (Manual) 7L, Monocytes % (Manual) 9, Eosinophils % (Manual) 1, Basophils % (Manual) 0, Band Neutrophils 0 , Platelet Estimate DecreasedL, Platelet Morphology Normal, Red Blood Cell Morphology Normal, Sodium Level 141, Potassium Level 4.3, Chloride Level 104, Carbon Dioxide Level 24, Anion Gap 13, Blood Urea Nitrogen 36H, Creatinine 1.3, Estimat Glomerular Filtration Rate 55.9, Glucose Level 272H, Calcium Level 8.4L , Phosphorus Level 3.1, Troponin I 0.061H, Free Thyroxine 1.23 Height (Feet): 5 Height (Inches): 5.00 Weight (Pounds): 185 General Appearance: no apparent distress, alert, obese, alert oriented x3 EENT: normal ENT inspection Neck: non-tender, normal alignment, supple Cardiovascular: no gallop/murmur, JVD, tachycardia, irregularly irregular Respiratory/Chest: chest wall non-tender, no respiratory distress, no accessory muscle use, crackles/rales Abdomen: normal bowel sounds, non tender, soft, no organomegaly Edema: 2+ Leg (L), 2+ Leg (R) Edema: mild edema Neurologic: contact centre supervisor II-XII grossly normal, no motor/sensory deficits, alert, oriented x 3, responsive, normal mood/affect Skin: normal pigmentation, warm/dry Nicolas Garibay M.D. Nov 30, 2019 12:19
--- NOTE | 2019-11-30 12:26 | Cardiac Electrophysiology PN ---
Assessment/Plan Assessment/Plan 1. Atrial flutter with rapid ventricular response. The patient was in and out of flutter and fibrillation despite Cardizem drip 10 mg/hour . On Eliquis 5 mg b.i.d. Echocardiogram pending and ruled out CA protocol. Will give Dig 0.5 mg iv and add 0.125 po daily. Also add po digoxin 2. Hypertension. Continue Cardizem drip. 3. Diabetes, on metformin. 4. Renal failure with creatinine of 2.4. 5. Rheumatoid arthritis. Subjective Subjective In ICU on Cardizem drip and still tachy Objective Last 24 Hour Vital Signs Date Time Temp Pulse Resp B/P (MAP) Pulse Ox O2 Delivery O2 Flow Rate FiO2 11/30/19 12:00 Nasal Cannula 2.0 11/30/19 11:22 106 139/88 11/30/19 11:22 106 11/30/19 11:00 105 27 156/76 (102) 97 11/30/19 10:30 106 26 139/88 (105) 97 11/30/19 10:00 107 25 159/85 (109) 97 11/30/19 09:30 107 25 159/85 (109) 97 11/30/19 09:00 100 27 174/128 (143) 95 11/30/19 08:00 Nasal Cannula 2.0 11/30/19 08:00 100 24 151/103 (119) 97 11/30/19 08:00 109 11/30/19 07:00 104 21 147/94 (111) 97 11/30/19 06:00 88 24 142/73 (96) 97 11/30/19 05:00 94 26 134/77 (96) 96 11/30/19 04:00 91 11/30/19 04:00 Nasal Cannula 2.0 11/30/19 04:00 98.3 90 24 128/95 (106) 95 11/30/19 03:00 91 23 159/81 (107) 96 11/30/19 02:00 96 26 124/77 (93) 97 11/30/19 01:00 94 24 105/80 (88) 97 11/30/19 00:00 98.4 108 26 153/67 (95) 96 11/30/19 00:00 Nasal Cannula 2.0 11/30/19 00:00 2.0 11/30/19 00:00 146 11/29/19 23:00 114 32 155/86 (109) 98 11/29/19 22:00 123 29 135/61 (85) 96 11/29/19 21:00 130 32 160/78 (105) 95 11/29/19 20:00 Nasal Cannula 2.0 11/29/19 20:00 166 11/29/19 20:00 98.6 142 31 161/110 (127) 94 11/29/19 19:47 2.0 11/29/19 19:47 Nasal Cannula 2.0 11/29/19 19:20 98.5 148 20 169/95 99 Room Air 11/29/19 19:08 98.5 148 20 169/95 99 Room Air 11/29/19 18:53 98.5 140 15 165/89 97 Room Air 11/29/19 18:38 152 16 161/90 96 Room Air 11/29/19 18:23 98.2 152 20 154/93 99 Room Air 11/29/19 18:00 163 152/100 164 164/112 165 172/108 11/29/19 18:00 98.2 152 16 145/90 100 Room Air 11/29/19 17:20 150 114/102 11/29/19 17:00 98.2 134 17 132/95 98 Room Air 11/29/19 16:05 98.5 140 20 169/128 97 Room Air 11/29/19 16:00 98.5 130 16 122/92 100 Room Air 11/29/19 15:08 97.9 118 15 114/102 100 Room Air 11/29/19 14:00 136 132/80 11/29/19 13:26 98.6 136 16 132/80 99 Room Air 11/29/19 13:16 98.6 129 18 152/86 (108) 96 Room Air Intake and Output 11/29/19 11/30/19 19:00 07:00 Intake Total 1000 ml 2340 ml Output Total 1200 ml Balance 1000 ml 1140 ml Intake Oral 0 ml 480 ml IV Total 1000 ml 1860 ml Output Urine Total 1200 ml # Voids 5 Laboratory Tests Test 11/29/19 19:48 11/29/19 20:30 11/29/19 20:45 11/30/19 08:15 POC Whole Blood Glucose Pending Hemoglobin A1c 7.6 % (4.3-6.0) H Magnesium Level 1.5 MG/DL (1.8-2.4) L Iron Level 29 ug/dL (50-175) L Total Iron Binding Capacity 226 ug/dL (250-450) L Percent Iron Saturation 13 % (15-50) L Unsaturated Iron Binding 197 ug/dL (112-346) Pro-B-Type Natriuretic Peptide 8326 pg/mL (0-125) H 6084 pg/mL (0-125) H Triglycerides Level 371 MG/DL (30-150) H 276 MG/DL (30-150) H Cholesterol Level 354 MG/DL (< 200) H 291 MG/DL (< 200) H LDL Cholesterol 271 mg/dL (<100) H 213 mg/dL (<100) H HDL Cholesterol 46 MG/DL (40-60) 41 MG/DL (40-60) Cholesterol/HDL Ratio 7.7 (3.3-4.4) H 7.1 (3.3-4.4) H Thyroid Stimulating Hormone (TSH) 0.605 uiU/mL (0.358-3.740) 0.432 uiU/mL (0.358-3.740) Urine Random Total Protein 26 MG/DL (< 11.9) H Urine Random Sodium 150 mmol/L (20-110) H Urine Creatinine 49.1 MG/DL (30.0-125.0) White Blood Count 16.0 K/UL (4.8-10.8) #H Red Blood Count 3.83 M/UL (4.70-6.10) L Hemoglobin 11.6 G/DL (14.2-18.0) L Hematocrit 36.3 % (42.0-52.0) L Mean Corpuscular Volume 95 FL (80-99) Mean Corpuscular Hemoglobin 30.2 PG (27.0-31.0) Mean Corpuscular Hemoglobin Concent 32.0 G/DL (32.0-36.0) Red Cell Distribution Width 15.4 % (11.6-14.8) H Platelet Count 299 K/UL (150-450) Mean Platelet Volume 8.5 FL (6.5-10.1) Neutrophils (%) (Auto) % (45.0-75.0) Lymphocytes (%) (Auto) % (20.0-45.0) Monocytes (%) (Auto) % (1.0-10.0) Eosinophils (%) (Auto) % (0.0-3.0) Basophils (%) (Auto) % (0.0-2.0) Differential Total Cells Counted 100 Neutrophils % (Manual) 83 % (45-75) H Lymphocytes % (Manual) 7 % (20-45) L Monocytes % (Manual) 9 % (1-10) Eosinophils % (Manual) 1 % (0-3) Basophils % (Manual) 0 % (0-2) Band Neutrophils 0 % (0-8) Platelet Estimate Decreased L Platelet Morphology Normal Red Blood Cell Morphology Normal Sodium Level 141 MMOL/L (136-145) Potassium Level 4.3 MMOL/L (3.5-5.1) Chloride Level 104 MMOL/L (98-107) Carbon Dioxide Level 24 MMOL/L (21-32) Anion Gap 13 mmol/L (5-15) Blood Urea Nitrogen 36 mg/dL (7-18) H Creatinine 1.3 MG/DL (0.55-1.30) Estimat Glomerular Filtration Rate 55.9 mL/min (>60) Glucose Level 272 MG/DL (74-106) H Calcium Level 8.4 MG/DL (8.5-10.1) L Phosphorus Level 3.1 MG/DL (2.5-4.9) Troponin I 0.061 ng/mL (0.000-0.056) Free Thyroxine 1.23 NG/DL (0.76-1.46) Microbiology Date/Time Source Procedure Growth Status 11/29/19 18:30 Rectum Received Objective HEAD AND NECK: No JVD. LUNGS: Decreased breath sounds. CARDIOVASCULAR: Irregular S1 and S2 with no gallop or murmur. ABDOMEN: Soft. EXTREMITIES: 1+ pitting edema. Tyler Pascual MD Nov 30, 2019 12:26
--- NOTE | 2019-11-30 13:27 | NUR ---
*-* INSURANCE *-* ALL AVAILABLE CLINICALS HAVE BEEN FAXED TO: [facility] AUTH#[id number] P [phone] F [phone]
--- NOTE | 2019-11-30 15:04 | NUR ---
MANAGER CABLE NOTE SW met w/ for initial assessment. Pt presents as A&O4x. Pt resides w/ his family at [address] , [place] [address]. Pt uses a cane to climb stairs. Pt is single, never and has no children. PT reports he is independent w/ ADLs and IADLs. PT denies mental health issue, tobacco use or substance abuse. PT does not have AD. PT expresses full code. PT does not share any social work case manager concern/needs. Emergency contact: Aracely Norman (sister) [phone]
--- NOTE | 2019-11-30 15:46 | NUR ---
CASE MANAGEMENT: REVIEW 64 YEAR OLD MALE CC: PALPITATIONS SI: A-FIB w/ RVR ECHOCARDIOGRAM PENDING T 98.2 HR 152 RR 16 BP 145/90 SAT 100% NC/2L WBC 16.0 MAG 1.5 BNP 8326 IS: CARDIZEM GTT NS IVF BOLUS X1 MAG SULFATE IV X1 LASIX 40MG IV X1 DIGOXIN IV X1 PATIENT ADMITTED TO ICU 11/29/2019 DCP: PATIENT IS FROM HOME
--- NOTE | 2019-11-30 17:00 | NUR ---
NURSE NOTES: patient provided with dinner and tolerated without complication. patient's HR remains <100m ranges from 90-100 at the moment.
--- NOTE | 2019-11-30 18:09 | Diagnostic Imaging Report ---
EXAM: US Retroperitoneal Complete, Renal CLINICAL HISTORY: RENAL-C TECHNIQUE: Real-time complete ultrasound of the retroperitoneum with image documentation. COMPARISON: No relevant prior studies available. FINDINGS: Right kidney: Right kidney 10.6cm No stones. No hydronephrosis. Left kidney: Left kidney 12 No stones. No hydronephrosis. Bladder: Urinary bladder volume 145mL. Other findings: No postvoid residual able to be calculated as patient had voided prior to exam and was not able to void following initial imaging. IMPRESSION: 1. No postvoid residual able to be calculated as patient had voided prior to exam and was not able to void following initial imaging. 2. Otherwise unremarkable study. 3. Urinary bladder volume 145mL.
--- NOTE | 2019-11-30 18:57 | NUR ---
NURSE NOTES: patient resting comfortably in bed with stable vital signs. patient updated with plan of care, patient verbalized understanding.
--- NOTE | 2019-11-30 19:08 | NUR ---
HAND-OFF: Report given to Stacy ELLINGTON. endorsed all plan of care to Stacy ELLINGTON.
--- NOTE | 2019-11-30 19:09 | NUR ---
NURSE NOTES: Patient received from CHANDANA Barrera. patient awake alert oriented x4. respirations even and unlabored on 2L NC oxygen saturation 97%. BP139/65 HR90 Afib on monitor. right AC #20 running Cardizem 10mg/hr clean and asymptomatic. skin warm dry intact with ecchymosis noted on left arm from prior venipuncture. patient repositioned self. Paged Dr. Pascual to inquire on Cardizem drip order renewal. awaiting call back. will continue plan of care.
--- NOTE | 2019-11-30 20:35 | Consultation ---
History of Present Illness General Chief Complaint: Palpitations Reason for Consultation: IVÁN Present Illness HPI 64 year old gentleman with a past medical history of rheumatoid arthritis and non insulin dependant DM comes to the hospital from PCP office with palpitations found to be in A. fib RVR. He first noticed palpitations about a month ago that became gradually more frequent. This prompted him to go see his PCP today. In the office his heart rate was found to be in the 150s. Patient states he has never been on a medication for HTN but uses some of his family member's medication if his blood pressure measures high. He's had no recent illnesses and his po intake has been normal. He has no chest pain or swelling in the legs. Allergies: Coded Allergies: No Known Allergies (Unverified , 11/29/19) Medication History Scheduled Leflunomide (Leflunomide), 20 MG PO DAILY, (Reported) Metformin Hcl* (Metformin Hcl*), 1,000 MG ORAL TWICE A DAY, (Reported) Patient History Healthcare decision maker N Resuscitation status Advanced Directive on File Review of Systems Constitutional: Denies: no symptoms, see HPI, chills, sweats, fever, malaise, weakness, other Eye: Denies: no symptoms, see HPI, eye pain, blurred vision, tearing, double vision, nose pain, nose congestion, acuity changes, discharge, other ENT: Denies: no symptoms, see HPI, ear pain, ear discharge, nose pain, nose congestion, throat pain, throat swelling, mouth pain, hearing loss, nasal discharge, other Respiratory: Denies: no symptoms, see HPI, cough, orthopnea, shortness of breath, stridor, wheezing, WARD, sputum, other Cardiovascular: Reports: palpitations Gastrointestinal: Denies: no symptoms, see HPI, abdominal pain, constipation, diarrhea, nausea, vomiting, melena, hematemesis, other Genitourinary: Denies: no symptoms, see HPI, discharge, dysuria, frequency, hematuria, pain, retention, incontinence, urgency, vag bleed/dc, other Musculoskeletal: Denies: no symptoms, see HPI, back pain, gout, joint pain, joint swelling, muscle pain, muscle stiffness, other Skin: Denies: no symptoms, see HPI, rash, change in color, change in hair/nails , dryness, lesions, other Psychiatric: Denies: no symptoms, see HPI, prior hx, anxiety, depressed feelings, emotional problems, SI, HI, hallucinations, other Neurological: Denies: no symptoms, see HPI, headache, numbness, paresthesia, seizure, tingling, tremors, focal weakness, syncope, dizziness, other Endocrine: Denies: no symptoms, see HPI, excessive sweating, flushing, intolerance to temperature, increased thirst, increased urine, unexplained weight loss, other Hematologic/Lymphatic: Denies: no symptoms, see HPI, anemia, blood clots, easy bleeding, easy bruising, swollen glands, diathesis, other Physical Exam General Appearance: no apparent distress, alert Lines, tubes and drains: peripheral HEENT: normocephalic, atraumatic Neck: non-tender, normal alignment Respiratory/Chest: lungs clear, normal breath sounds Cardiovascular/Chest: tachycardia, irregularly irregular Abdomen: normal bowel sounds, non tender, soft Extremities: normal range of motion, non-tender 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 grossly normal, alert, oriented x 3 Last 24 Hour Vital Signs Date Time Temp Pulse Resp B/P (MAP) Pulse Ox O2 Delivery O2 Flow Rate FiO2 11/30/19 19:47 2.0 11/30/19 19:00 90 23 139/65 (89) 97 11/30/19 18:00 94 24 145/87 (106) 94 11/30/19 17:23 96 129/90 11/30/19 17:00 107 24 147/78 (101) 79 11/30/19 16:00 96 11/30/19 16:00 97.8 97 25 129/90 (103) 89 11/30/19 16:00 Nasal Cannula 2.0 11/30/19 15:00 95 26 153/71 (98) 93 11/30/19 14:00 96 23 132/55 (80) 97 11/30/19 13:00 107 24 140/82 (101) 97 11/30/19 12:00 105 11/30/19 12:00 Nasal Cannula 2.0 11/30/19 11:22 106 139/88 11/30/19 11:22 106 11/30/19 11:00 105 27 156/76 (102) 97 11/30/19 10:30 106 26 139/88 (105) 97 11/30/19 10:00 107 25 159/85 (109) 97 11/30/19 09:30 107 25 159/85 (109) 97 11/30/19 09:00 100 27 174/128 (143) 95 11/30/19 08:00 Nasal Cannula 2.0 11/30/19 08:00 100 24 151/103 (119) 97 11/30/19 08:00 109 11/30/19 07:00 104 21 147/94 (111) 97 11/30/19 06:00 88 24 142/73 (96) 97 11/30/19 05:00 94 26 134/77 (96) 96 11/30/19 04:00 91 11/30/19 04:00 Nasal Cannula 2.0 11/30/19 04:00 98.3 90 24 128/95 (106) 95 11/30/19 03:00 91 23 159/81 (107) 96 11/30/19 02:00 96 26 124/77 (93) 97 11/30/19 01:00 94 24 105/80 (88) 97 11/30/19 00:00 98.4 108 26 153/67 (95) 96 11/30/19 00:00 Nasal Cannula 2.0 11/30/19 00:00 2.0 11/30/19 00:00 146 11/29/19 23:00 114 32 155/86 (109) 98 11/29/19 22:00 123 29 135/61 (85) 96 11/29/19 21:00 130 32 160/78 (105) 95 Intake and Output 11/29/19 11/30/19 19:00 07:00 Intake Total 1000 ml 2340 ml Output Total 1200 ml Balance 1000 ml 1140 ml Intake Oral 0 ml 480 ml IV Total 1000 ml 1860 ml Output Urine Total 1200 ml # Voids 5 Laboratory Tests Test 11/29/19 20:30 11/29/19 20:45 11/30/19 08:15 Hemoglobin A1c 7.6 % (4.3-6.0) H Magnesium Level 1.5 MG/DL (1.8-2.4) L Iron Level 29 ug/dL (50-175) L Total Iron Binding Capacity 226 ug/dL (250-450) L Percent Iron Saturation 13 % (15-50) L Unsaturated Iron Binding 197 ug/dL (112-346) Pro-B-Type Natriuretic Peptide 8326 pg/mL (0-125) H 6084 pg/mL (0-125) H Triglycerides Level 371 MG/DL (30-150) H 276 MG/DL (30-150) H Cholesterol Level 354 MG/DL (< 200) H 291 MG/DL (< 200) H LDL Cholesterol 271 mg/dL (<100) H 213 mg/dL (<100) H HDL Cholesterol 46 MG/DL (40-60) 41 MG/DL (40-60) Cholesterol/HDL Ratio 7.7 (3.3-4.4) H 7.1 (3.3-4.4) H Thyroid Stimulating Hormone (TSH) 0.605 uiU/mL (0.358-3.740) 0.432 uiU/mL (0.358-3.740) Urine Random Total Protein 26 MG/DL (< 11.9) H Urine Random Sodium 150 mmol/L (20-110) H Urine Creatinine 49.1 MG/DL (30.0-125.0) White Blood Count 16.0 K/UL (4.8-10.8) #H Red Blood Count 3.83 M/UL (4.70-6.10) L Hemoglobin 11.6 G/DL (14.2-18.0) L Hematocrit 36.3 % (42.0-52.0) L Mean Corpuscular Volume 95 FL (80-99) Mean Corpuscular Hemoglobin 30.2 PG (27.0-31.0) Mean Corpuscular Hemoglobin Concent 32.0 G/DL (32.0-36.0) Red Cell Distribution Width 15.4 % (11.6-14.8) H Platelet Count 299 K/UL (150-450) Mean Platelet Volume 8.5 FL (6.5-10.1) Neutrophils (%) (Auto) % (45.0-75.0) Lymphocytes (%) (Auto) % (20.0-45.0) Monocytes (%) (Auto) % (1.0-10.0) Eosinophils (%) (Auto) % (0.0-3.0) Basophils (%) (Auto) % (0.0-2.0) Differential Total Cells Counted 100 Neutrophils % (Manual) 83 % (45-75) H Lymphocytes % (Manual) 7 % (20-45) L Monocytes % (Manual) 9 % (1-10) Eosinophils % (Manual) 1 % (0-3) Basophils % (Manual) 0 % (0-2) Band Neutrophils 0 % (0-8) Platelet Estimate Decreased L Platelet Morphology Normal Red Blood Cell Morphology Normal Sodium Level 141 MMOL/L (136-145) Potassium Level 4.3 MMOL/L (3.5-5.1) Chloride Level 104 MMOL/L (98-107) Carbon Dioxide Level 24 MMOL/L (21-32) Anion Gap 13 mmol/L (5-15) Blood Urea Nitrogen 36 mg/dL (7-18) H Creatinine 1.3 MG/DL (0.55-1.30) Estimat Glomerular Filtration Rate 55.9 mL/min (>60) Glucose Level 272 MG/DL (74-106) H Calcium Level 8.4 MG/DL (8.5-10.1) L Phosphorus Level 3.1 MG/DL (2.5-4.9) Troponin I 0.061 ng/mL (0.000-0.056) Free Thyroxine 1.23 NG/DL (0.76-1.46) Height (Feet): 5 Height (Inches): 5.00 Weight (Pounds): 185 Medications Current Medications Medications (Trade) Dose Ordered Sig/Celia Route PRN Reason Start Time Stop Time Status Last Admin Dose Admin Acetaminophen (Tylenol) 650 mg Q4H PRN ORAL Mild Pain (Pain Scale 1-3) 11/29/19 16:30 12/29/19 16:29 11/29/19 22:58 Acetaminophen (Tylenol) 650 mg Q4H PRN ORAL Temp >100.5 11/29/19 16:30 12/29/19 16:29 Apixaban (Eliquis) 2.5 mg BID ORAL 11/30/19 09:00 02/27/20 17:59 11/30/19 17:24 Bisacodyl (Dulcolax) 10 mg DAILYPRN PRN RECTAL Constipation 11/29/19 16:30 02/27/20 16:29 Dextrose (Dextrose 50%) 25 ml Q30M PRN IV Hypoglycemia 11/29/19 16:30 02/27/20 16:29 Dextrose (Dextrose 50%) 50 ml Q30M PRN IV Hypoglycemia 11/29/19 16:30 02/27/20 16:29 Digoxin (Lanoxin) 0.125 mg DAILY ORAL 12/01/19 09:00 02/29/20 08:59 Diltiazem HCl (Cardizem Tab) 90 mg EVERY 6 HOURS ORAL 11/30/19 12:00 12/30/19 11:59 11/30/19 17:23 Furosemide (Lasix) 20 mg EVERY 6 HOURS IV 11/30/19 12:00 12/01/19 00:01 11/30/19 17:24 Magnesium Hydroxide (Mom) 30 ml HSPRN PRN ORAL Constipation 11/29/19 16:30 12/29/19 16:29 Metformin HCl (Glucophage) 1,000 mg BID ORAL 11/29/19 22:00 12/29/19 21:59 11/30/19 17:23 Nitroglycerin (Ntg) 0.4 mg Q5M PRN SL Prn Chest Pain 11/29/19 16:30 12/29/19 16:29 Ondansetron HCl (Zofran) 4 mg Q6H PRN IVP Nausea & Vomiting 11/29/19 16:30 12/29/19 16:29 Assessment/Plan Diagnosis Surprise I: #IVÁN on CKD #Diabetic nephropathy #afib with RVR #acute on chronic CHF #HTN #IDDM #HLD - lasix 20 Iv q6 - replete mag and K to keep > 2.2 and 4.4 - rate control per cardiology - on digoxin - on dilt 90 q6hr - continue apixaban - avoid nephrotoxins - strict I&Os - daily weights Time spent 75 min - greater than 50% on care coordination and counseling Berenice Pimentel M.D. Nov 30, 2019 20:35
[2019-11-30] MEDS: NovoLOG Insulin Flexpen SUBQ SCH (21:01)
--- NOTE | 2019-11-30 22:00 | NUR ---
NURSE NOTES: patient awake alert oriented x4. respirations even and unlabored on 2L NC oxygen saturation. BP120/62 HR88 Afib on monitor and afebrile. right AC #20 TKO, cardizem DC per Dr. Pascual if patient becomes tachy resume Cardizem drip. BS 201, patient agreed to have insulin sliding scale coverage. patient repositioned self. will continue to monitor.
[2019-12-01] VITALS (25 sets, daily range): BP systolic 98–166; BP diastolic 54–92
--- NOTE | 2019-12-01 | NUR ---
NURSE NOTES: patient asleep arousable to name oriented x4. respirations even and unlabored on 2L NC oxygen saturation 97%. BP160/79 HR94 Afib on monitor and afebrile. right AC #20 TKO. patient assisted to sponge bath. patient repositioned self. will continue to monitor.
--- NOTE | 2019-12-01 02:00 | NUR ---
NURSE NOTES: patient asleep arousable to name oriented x4. respirations even and unlabored on 2L NC oxygen saturation 98%. BP136/87 HR94 Afib on monitor. right AC #20 TKO. patient repositioned self. will continue to monitor.
--- NOTE | 2019-12-01 04:00 | NUR ---
NURSE NOTES: patient asleep arousable to name oriented x4. respirations even and unlabored on 2L NC oxygen saturation 99%. BP105/54 HR79 Afib on monitor and afebrile. right AC #20 TKO. patient repositioned self. will continue to monitor.
[2019-12-01] MEDS: dilTIAZem HCl 90mg tab ORAL SCH ×2 (05:46→11:26)
[2019-12-01] MEDS: NovoLOG Insulin Flexpen SUBQ SCH ×4 (05:47→21:00)
--- NOTE | 2019-12-01 06:00 | NUR ---
NURSE NOTES: patient awake and oriented x4. respirations even and unlabored on 2L NC oxygen saturation 98%. BP144/71 HR100 Afib on monitor and afebrile. right AC #20 TKO. patient repositioned self. patient had normal BM. will continue to monitor.
--- NOTE | 2019-12-01 07:12 | NUR ---
HAND-OFF: Report given to CHANDANA Zapata. endorsed plan of care.
--- NOTE | 2019-12-01 07:46 | NUR ---
NURSE NOTES: Report received from CHANDANA Kumar. Pt awake, sitting at bedside eating breakfast.Alert and oriented x 4, afebrile at this time and on oxygen via nasal canula at 2LPM. Pt able to self turned and repositioned.Consumed 100% at breakfast. Pt Afib, on the monitor control at this time with HR 97.Denied any chest pain or discomfort at this time.No signs of SOB noted.No significant change in condition. Will continue close monitoring.
[2019-12-01] MEDS: Digoxin 0.125mg tab ORAL SCH (08:33)
[2019-12-01] MEDS: Eliquis 2.5mg tablet ORAL SCH ×2 (08:34→17:23)
[2019-12-01] MEDS ORDERED: Digoxin 0.125mg tab ORAL SCH (09:00)
--- NOTE | 2019-12-01 10:01 | NUR ---
NURSE NOTES: Per pt he is taking Leflunomide 20mg daily.Dr Brewer called and ok to start the patient. Pt called the sister to bring his own medication, awaiting to received medication.Order noted and carried out.No significant change in condition at this time.Remains Afib on the monitor. Will continue to monitor.Call light within reach,
[2019-12-01 10:06] LABS: ANION GAP 9 mmol/L (5-15); BLOOD UREA NITROGEN 32 mg/dL (7-18); CALCIUM 8.7 MG/DL (8.5-10.1); CARBON DIOXIDE 32 MMOL/L (21-32); CHLORIDE 100 MMOL/L (98-107); CREATININE 1.3 MG/DL (0.55-1.30); FERRITIN 770 NG/ML (8-388); PHOSPHORUS 2.4 MG/DL (2.5-4.9); POTASSIUM 3.7 MMOL/L (3.5-5.1); SODIUM 141 MMOL/L (136-145)
--- NOTE | 2019-12-01 10:40 | General Progress Note ---
Assessment/Plan Problem List: (1) A-fib ICD Codes: I48.91 - Unspecified atrial fibrillation SNOMED: 25799058 (2) Anemia in CKD (chronic kidney disease) ICD Codes: N18.9 - Chronic kidney disease, unspecified; D63.1 - Anemia in chronic kidney disease SNOMED: 928289828 (3) CKD (chronic kidney disease) ICD Codes: N18.9 - Chronic kidney disease, unspecified SNOMED: 428383468 (4) Diabetes ICD Codes: E11.9 - Type 2 diabetes mellitus without complications SNOMED: 05005250 (5) Rheumatoid arthritis ICD Codes: M06.9 - Rheumatoid arthritis, unspecified SNOMED: 24294947 (6) Chronic systolic heart failure ICD Codes: I50.22 - Chronic systolic (congestive) heart failure SNOMED: 362524973 Status: doing well, stable, progressing Assessment/Plan: 64 year old gentleman with a past medical history of rheumatoid arthritis and non insulin dependant DM comes to the hospital from PCP office with palpitations found to be in A. fib RVR. #Atrial flutter/fibrillation with rapid ventricular response #Palpitations #HTN -Not a candidate for cardioversion - heart rate < 110 off of diltiazem drip - continue diltiazem 90 mg Q6 and digoxin 0.125 daily -continue Eliquis 2.5mg BID for CHADsVASc 2 -2D echo reviewed -Consulted Cardiology, appreciate recommendations. Will consider transferring out of ICU to telemetry now that off of drip - optimize electrolytes #Chronic systolic heart failure with EF 40% #Orthopnea #Elevated BNP -2D echo -Strict Is and Os, daily weights -Fluid and salt restriction - will discuss with Cardiology regarding timing/dose of starting maintenance lasix #DM type 2 - refused ISS and wants his home metformin, holding metformin while inpatient -Carb Consistent Diet -HgA1c #IVÁN on CKD - Hypertensive Vs. Diabetic Nephropathy #Anemia of CKD -Hold nephrotoxic medications -Urine studies -Nephrology following, appreciate recommendations #Rheumatoid arthritis -on home leflunomide but not available in our pharamcy, to resume as an outpatient #Dispo: patient to be discharged home once afib RVR resolved. Patient to follow up with PCP Dr. Pimentel I spent 35 min with majority face to face time (>50%) with patient, coordinated with consultants. Discussed with nursing staff. Independent viewing of imaging. I also spent 30 minutes reviewing the patient's past chart and medical history Subjective Date patient seen: Dec 01, 2019 Time patient seen: 10:29 Constitutional: Denies: chills, diaphoresis, fever HEENT: Denies: eye pain, blurred vision, double vision Cardiovascular: Reports: irregular heart rate, palpitations; Denies: chest pain , syncope Respiratory: Denies: cough, orthopnea, shortness of breath, SOB with excertion , SOB at rest Gastrointestinal/Abdominal: Denies: abdomen distended, abdominal pain, black stools, tarry stools, blood in stool, nausea Genitourinary: Denies: burning, discharge, flank pain Neurologic/Psychiatric: Reports: no symptoms Endocrine: Reports: no symptoms Hematologic/Lymphatic: Reports: no symptoms Allergies: Coded Allergies: No Known Allergies (Unverified , 11/29/19) All Systems: reviewed and negative except above Subjective patient feeling well. thinks his tachycardia and palpitations are improving Objective Last 24 Hour Vital Signs Date Time Temp Pulse Resp B/P (MAP) Pulse Ox O2 Delivery O2 Flow Rate FiO2 12/01/19 09:07 98.7 12/01/19 09:00 98.7 93 23 148/83 (104) 99 12/01/19 08:33 106 12/01/19 08:00 Nasal Cannula 2.0 12/01/19 08:00 99 20 153/70 (97) 99 12/01/19 08:00 98 12/01/19 07:00 92 20 138/66 (90) 97 12/01/19 06:00 100 19 144/71 (95) 98 12/01/19 05:46 88 125/78 12/01/19 05:00 87 19 125/78 (94) 98 12/01/19 04:00 98.5 79 17 105/54 (71) 99 12/01/19 04:00 Nasal Cannula 2.0 12/01/19 04:00 75 12/01/19 03:00 94 25 136/87 (103) 98 12/01/19 02:00 78 20 109/55 (73) 97 12/01/19 01:00 84 23 139/73 (95) 97 12/01/19 00:00 Nasal Cannula 2.0 12/01/19 00:00 98.9 94 21 160/79 (106) 97 12/01/19 00:00 94 11/30/19 23:46 90 143/71 11/30/19 23:00 93 25 143/71 (95) 97 11/30/19 22:00 88 22 120/62 (81) 97 11/30/19 21:00 87 24 143/86 (105) 96 11/30/19 20:00 89 11/30/19 20:00 Nasal Cannula 2.0 11/30/19 20:00 98.8 98 25 164/80 (108) 96 11/30/19 19:47 2.0 11/30/19 19:00 90 23 139/65 (89) 97 11/30/19 18:00 94 24 145/87 (106) 94 11/30/19 17:23 96 129/90 11/30/19 17:00 107 24 147/78 (101) 79 11/30/19 16:00 96 11/30/19 16:00 97.8 97 25 129/90 (103) 89 11/30/19 16:00 Nasal Cannula 2.0 11/30/19 15:00 95 26 153/71 (98) 93 11/30/19 14:00 96 23 132/55 (80) 97 11/30/19 13:00 107 24 140/82 (101) 97 11/30/19 12:00 105 11/30/19 12:00 Nasal Cannula 2.0 11/30/19 11:22 106 139/88 11/30/19 11:22 106 11/30/19 11:00 105 27 156/76 (102) 97 11/30/19 10:30 106 26 139/88 (105) 97 Intake and Output 11/30/19 12/01/19 18:59 06:59 Intake Total 165 ml 240 ml Output Total 1750 ml 1300 ml Balance -1585 ml -1060 ml Intake Oral 240 ml IV Total 165 ml Output Urine Total 1750 ml 1300 ml # Voids 5 4 # Bowel Movements 1 Laboratory Tests 11/30/19 21:00: POC Whole Blood Glucose [Pending] 12/01/19 05:44: POC Whole Blood Glucose [Pending] 12/01/19 08:35: Sodium Level 141, Potassium Level 3.7, Chloride Level 100, Carbon Dioxide Level 32, Anion Gap 9, Blood Urea Nitrogen 32H, Creatinine 1.3, Estimat Glomerular Filtration Rate 55.9, Glucose Level 200H, Calcium Level 8.7, Phosphorus Level 2.4L, Magnesium Level 1.5L, Ferritin 770H, Digoxin Level < 0.3L Height (Feet): 5 Height (Inches): 5.00 Weight (Pounds): 185 General Appearance: WD/WN, no apparent distress, alert EENT: PERRL/EOMI, pharynx normal Neck: normal alignment, supple, normal inspection Cardiovascular: no gallop/murmur, no JVD, tachycardia, irregularly irregular Respiratory/Chest: chest wall non-tender, lungs clear, normal breath sounds Abdomen: normal bowel sounds, non tender, soft Extremities: swelling Edema: 1+ Leg (L), 1+ Leg (R) 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 Dec 01, 2019 10:39
--- NOTE | 2019-12-01 12:09 | Nephrology Progress Note ---
Assessment/Plan Plan #IVÁN on CKD #Diabetic nephropathy #afib with RVR #acute on chronic CHF #HTN #IDDM #HLD - replete mag and K to keep > 2.2 and 4.4 - rate control per cardiology - on digoxin - on dilt 90 q6hr - continue apixaban - avoid nephrotoxins - strict I&Os - daily weights Time spent 75 min - greater than 50% on care coordination and counseling Subjective ROS Limited/Unobtainable: No Constitutional: Reports: weakness HEENT: Denies: no symptoms, eye pain, blurred vision, tearing, double vision, ear pain, ear discharge, nose pain, nose congestion, throat pain, throat swelling, mouth pain, mouth swelling, other Genitourinary: Denies: no symptoms, burning, discharge, frequency, flank pain, hematuria, incontinence, pain, urgency, other Neurologic/Psychiatric: Denies: no symptoms, anxiety, depressed, emotional problems, headache, numbness, paresthesia, pre-existing deficit, seizure, tingling, tremors, weakness, other Subjective Cr improved to 1.3 Heart rate better controlled wants to go home Objective Objective Last 24 Hour Vital Signs Date Time Temp Pulse Resp B/P (MAP) Pulse Ox O2 Delivery O2 Flow Rate FiO2 12/01/19 11:26 99 151/72 12/01/19 11:00 100 23 151/72 (98) 98 12/01/19 10:00 96 23 166/79 (108) 99 12/01/19 09:07 98.7 12/01/19 09:00 98.7 93 23 148/83 (104) 99 12/01/19 08:33 106 12/01/19 08:00 Nasal Cannula 2.0 12/01/19 08:00 99 20 153/70 (97) 99 12/01/19 08:00 98 12/01/19 07:00 92 20 138/66 (90) 97 12/01/19 06:00 100 19 144/71 (95) 98 12/01/19 05:46 88 125/78 12/01/19 05:00 87 19 125/78 (94) 98 12/01/19 04:00 98.5 79 17 105/54 (71) 99 12/01/19 04:00 Nasal Cannula 2.0 12/01/19 04:00 75 12/01/19 03:00 94 25 136/87 (103) 98 12/01/19 02:00 78 20 109/55 (73) 97 12/01/19 01:00 84 23 139/73 (95) 97 12/01/19 00:00 Nasal Cannula 2.0 12/01/19 00:00 98.9 94 21 160/79 (106) 97 12/01/19 00:00 94 11/30/19 23:46 90 143/71 11/30/19 23:00 93 25 143/71 (95) 97 11/30/19 22:00 88 22 120/62 (81) 97 11/30/19 21:00 87 24 143/86 (105) 96 11/30/19 20:00 89 11/30/19 20:00 Nasal Cannula 2.0 11/30/19 20:00 98.8 98 25 164/80 (108) 96 11/30/19 19:47 2.0 11/30/19 19:00 90 23 139/65 (89) 97 11/30/19 18:00 94 24 145/87 (106) 94 11/30/19 17:23 96 129/90 11/30/19 17:00 107 24 147/78 (101) 79 11/30/19 16:00 96 11/30/19 16:00 97.8 97 25 129/90 (103) 89 11/30/19 16:00 Nasal Cannula 2.0 11/30/19 15:00 95 26 153/71 (98) 93 11/30/19 14:00 96 23 132/55 (80) 97 11/30/19 13:00 107 24 140/82 (101) 97 Intake and Output 11/30/19 12/01/19 19:00 07:00 Intake Total 30 ml 240 ml Output Total 1750 ml 1100 ml Balance -1720 ml -860 ml Intake Oral 240 ml IV Total 30 ml Output Urine Total 1750 ml 1100 ml # Voids 4 4 # Bowel Movements 1 Laboratory Tests 11/30/19 21:00: POC Whole Blood Glucose [Pending] 12/01/19 05:44: POC Whole Blood Glucose [Pending] 12/01/19 08:35: Sodium Level 141, Potassium Level 3.7, Chloride Level 100, Carbon Dioxide Level 32, Anion Gap 9, Blood Urea Nitrogen 32H, Creatinine 1.3, Estimat Glomerular Filtration Rate 55.9, Glucose Level 200H, Calcium Level 8.7, Phosphorus Level 2.4L, Magnesium Level 1.5L, Ferritin 770H, Digoxin Level < 0.3L Height (Feet): 5 Height (Inches): 5.00 Weight (Pounds): 185 General Appearance: WD/WN, no apparent distress EENT: PERRL/EOMI Neck: non-tender, normal alignment Cardiovascular: tachycardia, irregularly irregular Respiratory/Chest: chest wall non-tender, lungs clear Abdomen: normal bowel sounds, non tender, soft Extremities: normal range of motion, non-tender Neurologic: alert, oriented x 3 Berenice Pimentel M.D. Dec 01, 2019 12:09
--- NOTE | 2019-12-01 12:10 | NUR ---
NURSE NOTES: Pt seen by Dr Richards,will follow up with new orders.Received medication from sister Aracely and send to pharmacy for verification.Pt remains stable at this time with call light within easy reach
[2019-12-01] MEDS: Potassium Phosphate 15mm/250ml 250 ML IVPB SCH ×2 (12:38→16:20)
--- NOTE | 2019-12-01 13:27 | NUR ---
*-* INSURANCE *-* ALL AVAILABLE CLINICALS HAVE BEEN FAXED TO: [facility] AUTH#[id number] P [phone] F [phone]
--- NOTE | 2019-12-01 14:24 | NUR ---
NURSE NOTES: Patient asleep with no apparent distress. Able to self repositioned.Control afib with HR 98. No significant change at this time.Will continue close monitoring
--- NOTE | 2019-12-01 15:14 | Consultation ---
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 fib and came to the emergency room for evaluation admitted further care and management A. fib RVR noted to have significant leukocytosis abnormal labs and complaining of discomfort and pain surgery called to evaluate and assist with care and management patient seen patient value chart reviewed. Currently comfortable sitting up tolerating diet on drip. No nausea vomiting fever chills. Labs noted imaging reviewed Allergies: Coded Allergies: No Known Allergies (Unverified , 11/29/19) COVID-19 Screening Contact w/high risk pt: No Experienced COVID-19 symptoms?: No Medication History Scheduled Leflunomide (Leflunomide), 20 MG PO DAILY, (Reported) Metformin Hcl* (Metformin Hcl*), 1,000 MG ORAL TWICE A DAY, (Reported) Patient History History Provided By: Patient, Medical Record, PMD Healthcare decision maker N Resuscitation status Advanced Directive on File Past Medical/Surgical History Past Medical/Surgical History: (1) Leukocytosis (2) Rheumatoid arthritis (3) Diabetes (4) CKD (chronic kidney disease) (5) Anemia in CKD (chronic kidney disease) (6) A-fib (7) Chronic systolic heart failure Family History Family History: FH: myocardial infarction Review of Systems Review of Symptoms General ROS: no weight loss or fever Psychological ROS: no depression or mood changes, no memory loss Ophthalmic ROS: no visual changes or eye irritation ENT ROS: no nasal congestion, hearing loss, dizziness Allergy and Immunology ROS: no allergic symptoms or urticaria Hematological and Lymphatic ROS: no swollen glands, unusual bleeding or bruising Endocrine ROS: no polyuria, polydipsia, weight changes, temperature intolerance Respiratory ROS: no cough, shortness of breath, or wheezing Cardiovascular ROS: no chest pain or dyspnea on exertion Gastrointestinal ROS: denies abdominal pain, bright red blood in stool. Musculoskeletal ROS: no myalgias or arthralgias Neurological ROS: no TIA or stroke symptoms Dermatological ROS: no new or changing skin lesions, rashes or pruritis Physical Exam Physical Exam General appearance: alert, cooperative, no distress, appears stated age Head: Normocephalic, without obvious abnormality, atraumatic Eyes: conjunctivae/corneas clear. PERRL, EOM's intact. Fundi benign Throat: Lips, mucosa, and tongue normal. Teeth and gums normal Neck: supple, symmetrical, trachea midline, no adenopathy, thyroid: not enlarged, symmetric, no tenderness/mass/nodules, no carotid bruit and no JVD Lungs: clear to auscultation bilaterally Heart: af, S1, S2 normal, no murmur, click, rub or gallop Abdomen: soft, non-tender. Bowel sounds normal. No masses, no organomegaly Extremities: extremities normal, atraumatic, no cyanosis or edema Pulses: 2+ and symmetric Skin: Skin color, texture, turgor normal. No rashes or lesions Neurologic: Grossly normal Last 24 Hour Vital Signs Date Time Temp Pulse Resp B/P (MAP) Pulse Ox O2 Delivery O2 Flow Rate FiO2 12/01/19 14:00 94 18 163/74 (103) 96 12/01/19 13:00 103 23 153/68 (96) 96 12/01/19 12:00 98.2 108 22 147/83 (104) 98 12/01/19 12:00 Nasal Cannula 2.0 12/01/19 12:00 93 12/01/19 11:26 99 151/72 12/01/19 11:00 100 23 151/72 (98) 98 12/01/19 10:00 96 23 166/79 (108) 99 12/01/19 09:07 98.7 12/01/19 09:00 98.7 93 23 148/83 (104) 99 12/01/19 08:33 106 12/01/19 08:00 Nasal Cannula 2.0 12/01/19 08:00 99 20 153/70 (97) 99 12/01/19 08:00 98 12/01/19 07:00 92 20 138/66 (90) 97 12/01/19 06:00 100 19 144/71 (95) 98 12/01/19 05:46 88 125/78 12/01/19 05:00 87 19 125/78 (94) 98 12/01/19 04:00 98.5 79 17 105/54 (71) 99 12/01/19 04:00 Nasal Cannula 2.0 12/01/19 04:00 75 12/01/19 03:00 94 25 136/87 (103) 98 12/01/19 02:00 78 20 109/55 (73) 97 7/23/20 01:00 84 23 139/73 (95) 97 12/01/19 00:00 Nasal Cannula 2.0 12/01/19 00:00 98.9 94 21 160/79 (106) 97 12/01/19 00:00 94 11/30/19 23:46 90 143/71 11/30/19 23:00 93 25 143/71 (95) 97 11/30/19 22:00 88 22 120/62 (81) 97 11/30/19 21:00 87 24 143/86 (105) 96 11/30/19 20:00 89 11/30/19 20:00 Nasal Cannula 2.0 11/30/19 20:00 98.8 98 25 164/80 (108) 96 11/30/19 19:47 2.0 11/30/19 19:00 90 23 139/65 (89) 97 11/30/19 18:00 94 24 145/87 (106) 94 11/30/19 17:23 96 129/90 11/30/19 17:00 107 24 147/78 (101) 79 11/30/19 16:00 96 11/30/19 16:00 97.8 97 25 129/90 (103) 89 11/30/19 16:00 Nasal Cannula 2.0 Intake and Output 11/30/19 12/01/19 19:00 07:00 Intake Total 30 ml 240 ml Output Total 1750 ml 1100 ml Balance -1720 ml -860 ml Intake Oral 240 ml IV Total 30 ml Output Urine Total 1750 ml 1100 ml # Voids 4 4 # Bowel Movements 1 Laboratory Tests Test 11/30/19 21:00 12/01/19 05:44 12/01/19 08:35 POC Whole Blood Glucose Pending Pending Sodium Level 141 MMOL/L (136-145) Potassium Level 3.7 MMOL/L (3.5-5.1) Chloride Level 100 MMOL/L (98-107) Carbon Dioxide Level 32 MMOL/L (21-32) Anion Gap 9 mmol/L (5-15) Blood Urea Nitrogen 32 mg/dL (7-18) H Creatinine 1.3 MG/DL (0.55-1.30) Estimat Glomerular Filtration Rate 55.9 mL/min (>60) Glucose Level 200 MG/DL (74-106) H Calcium Level 8.7 MG/DL (8.5-10.1) Phosphorus Level 2.4 MG/DL (2.5-4.9) L Magnesium Level 1.5 MG/DL (1.8-2.4) L Ferritin 770 NG/ML (8-388) H Digoxin Level < 0.3 NG/ML (0.5-2.0) L Height (Feet): 5 Height (Inches): 5.00 Weight (Pounds): 185 Medications Current Medications Medications (Trade) Dose Ordered Sig/Celia Route PRN Reason Start Time Stop Time Status Last Admin Dose Admin Acetaminophen (Tylenol) 650 mg Q4H PRN ORAL Mild Pain (Pain Scale 1-3) 11/29/19 16:30 12/29/19 16:29 12/01/19 14:39 Acetaminophen (Tylenol) 650 mg Q4H PRN ORAL Temp >100.5 11/29/19 16:30 12/29/19 16:29 Apixaban (Eliquis) 2.5 mg BID ORAL 11/30/19 09:00 02/27/20 17:59 12/01/19 08:34 Bisacodyl (Dulcolax) 10 mg DAILYPRN PRN RECTAL Constipation 11/29/19 16:30 02/27/20 16:29 Dextrose (Dextrose 50%) 25 ml Q30M PRN IV Hypoglycemia 11/29/19 16:30 02/27/20 16:29 Dextrose (Dextrose 50%) 50 ml Q30M PRN IV Hypoglycemia 11/29/19 16:30 02/27/20 16:29 Digoxin (Lanoxin) 0.125 mg DAILY ORAL 12/01/19 09:00 02/29/20 08:59 12/01/19 08:33 Diltiazem HCl (Cardizem Tab) 90 mg EVERY 6 HOURS ORAL 11/30/19 12:00 12/30/19 11:59 12/01/19 11:26 Insulin Aspart (NovoLOG) BEFORE MEALS AND HS SUBQ 11/30/19 21:00 02/28/20 20:59 12/01/19 11:47 Magnesium Hydroxide (Mom) 30 ml HSPRN PRN ORAL Constipation 11/29/19 16:30 12/29/19 16:29 Magnesium Sulfate 100 ml @ 100 mls/hr Q1H IVPB 12/01/19 11:30 12/01/19 15:29 12/01/19 14:30 Nitroglycerin (Ntg) 0.4 mg Q5M PRN SL Prn Chest Pain 11/29/19 16:30 12/29/19 16:29 Ondansetron HCl (Zofran) 4 mg Q6H PRN IVP Nausea & Vomiting 11/29/19 16:30 12/29/19 16:29 Patient Own Medication (Patient's Own Med) 1 ea DAILY ORAL 12/01/19 13:00 12/31/19 12:59 12/01/19 12:35 Potassium Phosphate 250 ml @ 83.333 mls/ hr Q3H IVPB 12/01/19 12:00 12/01/19 17:59 12/01/19 12:38 Assessment/Plan Problem List: (1) Leukocytosis Assessment & Plan: 64-year-old male A. fib RVR in ICU identified to have leukocytosis etiology unknown. Work-up currently pending. UA ordered. Renal ultrasound noted. Awaiting microbiology and lab results. No abscess or abdominal etiology identified fortunately. We will follow with recommendations. Thank you for letting participate patient's care ICD Codes: D72.829 - Elevated white blood cell count, unspecified SNOMED: 714993803, 505808682 (2) Rheumatoid arthritis ICD Codes: M06.9 - Rheumatoid arthritis, unspecified SNOMED: 01494784 (3) Diabetes ICD Codes: E11.9 - Type 2 diabetes mellitus without complications SNOMED: 17314863 (4) CKD (chronic kidney disease) Assessment & Plan: Right kidney: Right kidney 10.6cm No stones. No hydronephrosis. Left kidney: Left kidney 12 No stones. No hydronephrosis. Bladder: Urinary bladder volume 145mL. Other findings: No postvoid residual able to be calculated as patient had voided prior to exam and was not able to void following initial imaging. IMPRESSION: 1. No postvoid residual able to be calculated as patient had voided prior to exam and was not able to void following initial imaging. 2. Otherwise unremarkable study. 3. Urinary bladder volume 145mL. ICD Codes: N18.9 - Chronic kidney disease, unspecified SNOMED: 351159097 (5) Anemia in CKD (chronic kidney disease) ICD Codes: N18.9 - Chronic kidney disease, unspecified; D63.1 - Anemia in chronic kidney disease SNOMED: 970235114 (6) A-fib ICD Codes: I48.91 - Unspecified atrial fibrillation SNOMED: 79257025 (7) Chronic systolic heart failure ICD Codes: I50.22 - Chronic systolic (congestive) heart failure SNOMED: 097643222 Rahul Alexandre Dec 01, 2019 15:14
--- NOTE | 2019-12-01 15:20 | NUR ---
CASE MANAGEMENT:REVIEW 12/01/19 SI: AFIB RVR. ANEMIA. CKD 98.2 108 22 147/83 98% ON 2L/NC BUN+32 GLUCOSE+200 PHOS-2.4 MAG-1.5 IS: IV K-PHOS Q3HRS X2 IV MAG SULFATE Q1HRS X4 DIGOXIN PO QD SS INSULIN AC+HS CARDIZEM PO Q6HRS ELIQUIS PO BID : ICU STATUS DCP: FROM HOME PLAN: DOWNGRADE TO TELEMETRY
--- NOTE | 2019-12-01 16:04 | NUR ---
NURSE NOTES: Patient was seen by Dr Pascual with order to transfer to [facility]. Denied of pain and discomfort at this time.Will continue to monitor.No significant change in condition.Call light within easy reach.
--- NOTE | 2019-12-01 16:29 | Cardiac Electrophysiology PN ---
Assessment/Plan Assessment/Plan 1. Atrial flutter with rapid ventricular response. The patient was in and out of flutter and fibrillation despite Cardizem drip 10 mg/hour . On Eliquis 5 mg b.i.d. Echocardiogram EF 40% and ruled out for OH Got Dig 0.5 mg iv and on 0.125 po daily Dig. In view of Cardiomyopathy, DC Cardizem and start Lopressor 100 po bid 2. Hypertension. Continue Lopressor 100 bid 3. CHF EF 40%. Could be tachy myopathy add Dig, Metoprolol. When BP stabilized Add hydralazine and isordil. Avoid ACEI, ARB for renal failure 4. Diabetes, on metformin. 5. Renal failure with creatinine of 2.4. 6. Rheumatoid arthritis. DW RN and Niece Subjective Subjective In ICU still tachy on Cardizem and Dig. Cardizem drip DCed last night Objective Last 24 Hour Vital Signs Date Time Temp Pulse Resp B/P (MAP) Pulse Ox O2 Delivery O2 Flow Rate FiO2 12/01/19 16:00 98.2 100 17 145/74 (97) 98 12/01/19 16:00 Nasal Cannula 2.0 12/01/19 16:00 98 12/01/19 15:09 98.2 12/01/19 15:00 98 18 145/76 (99) 96 12/01/19 14:00 94 18 163/74 (103) 96 12/01/19 13:00 103 23 153/68 (96) 96 12/01/19 12:00 98.2 108 22 147/83 (104) 98 12/01/19 12:00 Nasal Cannula 2.0 12/01/19 12:00 93 12/01/19 11:26 99 151/72 12/01/19 11:00 100 23 151/72 (98) 98 12/01/19 10:00 96 23 166/79 (108) 99 12/01/19 09:00 98.7 93 23 148/83 (104) 99 12/01/19 08:33 106 12/01/19 08:00 Nasal Cannula 2.0 12/01/19 08:00 99 20 153/70 (97) 99 12/01/19 08:00 98 12/01/19 07:00 92 20 138/66 (90) 97 7/23/20 06:00 100 19 144/71 (95) 98 12/01/19 05:46 88 125/78 12/01/19 05:00 87 19 125/78 (94) 98 12/01/19 04:00 98.5 79 17 105/54 (71) 99 12/01/19 04:00 Nasal Cannula 2.0 12/01/19 04:00 75 12/01/19 03:00 94 25 136/87 (103) 98 12/01/19 02:00 78 20 109/55 (73) 97 12/01/19 01:00 84 23 139/73 (95) 97 12/01/19 00:00 Nasal Cannula 2.0 12/01/19 00:00 98.9 94 21 160/79 (106) 97 12/01/19 00:00 94 11/30/19 23:46 90 143/71 11/30/19 23:00 93 25 143/71 (95) 97 11/30/19 22:00 88 22 120/62 (81) 97 11/30/19 21:00 87 24 143/86 (105) 96 11/30/19 20:00 89 11/30/19 20:00 Nasal Cannula 2.0 11/30/19 20:00 98.8 98 25 164/80 (108) 96 11/30/19 19:47 2.0 11/30/19 19:00 90 23 139/65 (89) 97 11/30/19 18:00 94 24 145/87 (106) 94 11/30/19 17:23 96 129/90 11/30/19 17:00 107 24 147/78 (101) 79 Intake and Output 11/30/19 12/01/19 19:00 07:00 Intake Total 30 ml 240 ml Output Total 1750 ml 1100 ml Balance -1720 ml -860 ml Intake Oral 240 ml IV Total 30 ml Output Urine Total 1750 ml 1100 ml # Voids 4 4 # Bowel Movements 1 Laboratory Tests Test 11/30/19 21:00 12/01/19 05:44 12/01/19 08:35 POC Whole Blood Glucose Pending Pending Sodium Level 141 MMOL/L (136-145) Potassium Level 3.7 MMOL/L (3.5-5.1) Chloride Level 100 MMOL/L (98-107) Carbon Dioxide Level 32 MMOL/L (21-32) Anion Gap 9 mmol/L (5-15) Blood Urea Nitrogen 32 mg/dL (7-18) H Creatinine 1.3 MG/DL (0.55-1.30) Estimat Glomerular Filtration Rate 55.9 mL/min (>60) Glucose Level 200 MG/DL (74-106) H Calcium Level 8.7 MG/DL (8.5-10.1) Phosphorus Level 2.4 MG/DL (2.5-4.9) L Magnesium Level 1.5 MG/DL (1.8-2.4) L Ferritin 770 NG/ML (8-388) H Digoxin Level < 0.3 NG/ML (0.5-2.0) L Microbiology Date/Time Source Procedure Growth Status 11/29/19 18:30 Rectum Received Objective HEAD AND NECK: No JVD. LUNGS: Decreased breath sounds. CARDIOVASCULAR: Irregular S1 and S2 with no gallop or murmur. ABDOMEN: Soft. EXTREMITIES: 1+ pitting edema. Tyler Pascual MD Dec 01, 2019 16:29
--- NOTE | 2019-12-01 16:33 | Cardiac Electrophysiology PN ---
Assessment/Plan Assessment/Plan 1. Atrial flutter with rapid ventricular response. The patient was in and out of flutter and fibrillation despite Cardizem drip 10 mg/hour . On Eliquis 5 mg b.i.d. Echocardiogram EF 40% Got Dig 0.5 mg iv and on 0.125 po daily Dig. In view of Cardiomyopathy, DC Cardizem and start Lopressor 100 po bid 2. Hypertension. Continue Lopressor 100 bid 3. CHF EF 40%. Could be tachy myopathy add Dig, Metoprolol. When BP stabilized Add hydralazine and isordil. Avoid ACEI, ARB for renal failure 4. Troponin leak, likely due to fib/rvr and renal failure. Repeat in am. 5. Renal failure with creatinine of 2.4. Cr. Improved to 1.3 6. Rheumatoid arthritis. 7. Diabetes, on metformin. DW RN and Niece Subjective Subjective In ICU still tachy on Cardizem and Dig. Cardizem drip DCed last night Objective Last 24 Hour Vital Signs Date Time Temp Pulse Resp B/P (MAP) Pulse Ox O2 Delivery O2 Flow Rate FiO2 12/01/19 16:00 98.2 100 17 145/74 (97) 98 12/01/19 16:00 Nasal Cannula 2.0 12/01/19 16:00 98 12/01/19 15:09 98.2 12/01/19 15:00 98 18 145/76 (99) 96 12/01/19 14:00 94 18 163/74 (103) 96 12/01/19 13:00 103 23 153/68 (96) 96 12/01/19 12:00 98.2 108 22 147/83 (104) 98 12/01/19 12:00 Nasal Cannula 2.0 12/01/19 12:00 93 12/01/19 11:26 99 151/72 12/01/19 11:00 100 23 151/72 (98) 98 12/01/19 10:00 96 23 166/79 (108) 99 12/01/19 09:00 98.7 93 23 148/83 (104) 99 12/01/19 08:33 106 12/01/19 08:00 Nasal Cannula 2.0 12/01/19 08:00 99 20 153/70 (97) 99 12/01/19 08:00 98 12/01/19 07:00 92 20 138/66 (90) 97 12/01/19 06:00 100 19 144/71 (95) 98 12/01/19 05:46 88 125/78 12/01/19 05:00 87 19 125/78 (94) 98 12/01/19 04:00 98.5 79 17 105/54 (71) 99 12/01/19 04:00 Nasal Cannula 2.0 12/01/19 04:00 75 12/01/19 03:00 94 25 136/87 (103) 98 12/01/19 02:00 78 20 109/55 (73) 97 12/01/19 01:00 84 23 139/73 (95) 97 12/01/19 00:00 Nasal Cannula 2.0 12/01/19 00:00 98.9 94 21 160/79 (106) 97 12/01/19 00:00 94 11/30/19 23:46 90 143/71 11/30/19 23:00 93 25 143/71 (95) 97 11/30/19 22:00 88 22 120/62 (81) 97 11/30/19 21:00 87 24 143/86 (105) 96 11/30/19 20:00 89 11/30/19 20:00 Nasal Cannula 2.0 11/30/19 20:00 98.8 98 25 164/80 (108) 96 11/30/19 19:47 2.0 11/30/19 19:00 90 23 139/65 (89) 97 11/30/19 18:00 94 24 145/87 (106) 94 11/30/19 17:23 96 129/90 11/30/19 17:00 107 24 147/78 (101) 79 Intake and Output 11/30/19 12/01/19 19:00 07:00 Intake Total 30 ml 240 ml Output Total 1750 ml 1100 ml Balance -1720 ml -860 ml Intake Oral 240 ml IV Total 30 ml Output Urine Total 1750 ml 1100 ml # Voids 4 4 # Bowel Movements 1 Laboratory Tests Test 11/30/19 21:00 12/01/19 05:44 12/01/19 08:35 12/01/19 11:39 POC Whole Blood Glucose Pending Pending Pending Sodium Level 141 MMOL/L (136-145) Potassium Level 3.7 MMOL/L (3.5-5.1) Chloride Level 100 MMOL/L (98-107) Carbon Dioxide Level 32 MMOL/L (21-32) Anion Gap 9 mmol/L (5-15) Blood Urea Nitrogen 32 mg/dL (7-18) H Creatinine 1.3 MG/DL (0.55-1.30) Estimat Glomerular Filtration Rate 55.9 mL/min (>60) Glucose Level 200 MG/DL (74-106) H Calcium Level 8.7 MG/DL (8.5-10.1) Phosphorus Level 2.4 MG/DL (2.5-4.9) L Magnesium Level 1.5 MG/DL (1.8-2.4) L Ferritin 770 NG/ML (8-388) H Digoxin Level < 0.3 NG/ML (0.5-2.0) L Microbiology Date/Time Source Procedure Growth Status 11/29/19 18:30 Rectum Received Objective HEAD AND NECK: No JVD. LUNGS: Decreased breath sounds. CARDIOVASCULAR: Irregular S1 and S2 with no gallop or murmur. ABDOMEN: Soft. EXTREMITIES: 1+ pitting edema. Tyler Pascual MD Dec 01, 2019 16:33
--- NOTE | 2019-12-01 18:01 | NUR ---
NURSE NOTES: Patient awake watching tv, no significant change.Still waiting for room availability. Call light within easy reach.Will continue same care plan, remains Afib on the monitor control HR at 98.Will continue monitoring
--- NOTE | 2019-12-01 19:14 | NUR ---
NURSE NOTES: Received patient from CHANDANA Zapata. Will continue plan of care.
--- NOTE | 2019-12-01 19:21 | NUR ---
HAND-OFF: Report given to CHANDANA Joyce and endorsed transfer to telemetry.Room given 207.
--- NOTE | 2019-12-01 20:00 | NUR ---
NURSE NOTES: Patient is awake, alert and oriented x4. On 2L nasal cannula O2sat:99%. Ambulatory. All needs are net and neccessities are within reach. Patient is awaiting trasfer to tele. BP:125/67, HR:91. Patient is stable.
[2019-12-01] MEDS: Metoprolol Tartrate 100mg tab ORAL SCH ×2 (20:28→21:13)
--- NOTE | 2019-12-01 22:00 | NUR ---
NURSE NOTES: All needs are met, patient is comfortable. BP:127/78, HR:93. O2:97% on 2L nasal cannula.
[2019-12-02] VITALS (20 sets, daily range): BP systolic 115–147; BP diastolic 55–127
--- NOTE | 2019-12-02 | NUR ---
NURSE NOTES: Patient has been sleeping comfortably. Vital signs stable. Call light within reach.
--- NOTE | 2019-12-02 02:00 | NUR ---
NURSE NOTES: Low temp of 97F axillary. Blankets offer but he refused. Patient is comfortable. Vital signs stable.
--- NOTE | 2019-12-02 04:00 | NUR ---
NURSE NOTES: Provided wipes and towels to patient as requested. He gave himself a sponge bath. Agreed for me to do EKG but refuses labs until later morning around 8. EKG filed in chart. satellite installation technician notified.
--- NOTE | 2019-12-02 06:00 | NUR ---
NURSE NOTES: Patient woke up and asked for something to eat (sandwich) b/c bfast was not going to be served for another hour. Blood sugar checked, insulin given. All needs are met. Patient is comfortable.
[2019-12-02] MEDS: NovoLOG Insulin Flexpen SUBQ SCH ×4 (06:11→20:59)
--- NOTE | 2019-12-02 07:30 | NUR ---
NURSE NOTES: Pt received from CHANDANA Joyce. Pt is laying in bed, AAO x 4, able to follow simple commands, bilat pupils 3 mm PERRLA +, no acute distress noted. Pt is on 2L O2 via NC with spO2 96-98%. All lung lobes noted diminished upon auscultation. Bilateral radial pulses 3+ and dorsalis pedis pulses 2+. Pt is AFIB to surveillance monitor with rate noted 120-130. Dr Pascual present at bedside and assessing pt. Urinal at bedside. Skin is intact. Pt has a RAC 20g IV saline locked- flushed and patent. Bed in lowest position, alarm on, side rails up x 2, call light within reach, pt wearing yellow socks and gown and provided with fall prevention education- verbalized understanding and agreed to use call light for assistance. Will continue to monitor.
--- NOTE | 2019-12-02 07:30 | NUR ---
HAND-OFF: Report given to CHANDANA TAYLOR.
[2019-12-02] MEDS: Digoxin 0.125mg tab ORAL SCH (08:10)
[2019-12-02] MEDS: Metoprolol Tartrate 100mg tab ORAL SCH ×3 (08:11→21:38)
[2019-12-02] MEDS: Eliquis 2.5mg tablet ORAL SCH ×2 (08:11→17:03)
--- NOTE | 2019-12-02 08:15 | Cardiac Electrophysiology PN ---
Assessment/Plan Assessment/Plan 1. Atrial flutter with rapid ventricular response. The patient was in and out of flutter and fibrillation On Eliquis 5 mg b.i.d. Echocardiogram EF 40 % Got Dig 0.5 mg iv and on 0.125 po daily Dig. Increase Lopressor to 100 po q 8 hr. Give additional 0.25 iv Dig and check Dig levelin am 2. Hypertension. Continue Lopressor 100 tid 3. CHF EF 40%. Could be tachy myopathy add Dig, Metoprolol. When BP stabilized Add hydralazine and isordil. Avoid ACEI, ARB for renal failure 4. Troponin leak, likely due to fib/rvr and renal failure. Repeat in am. 5. Renal failure with creatinine of 2.4. Cr. Improved to 1.3 6. Rheumatoid arthritis. 7. Diabetes, on metformin. DEVI RN and Niece Subjective Subjective In ICU still in atrial fib with RVR 140s despite Lopressor 100 bid and Dig. Objective Last 24 Hour Vital Signs Date Time Temp Pulse Resp B/P (MAP) Pulse Ox O2 Delivery O2 Flow Rate FiO2 12/02/19 07:00 115 20 125/68 (87) 99 12/02/19 06:00 96 18 136/76 (96) 99 12/02/19 05:00 101 19 146/88 (107) 98 12/02/19 04:00 96.9 93 22 131/96 (108) 99 12/02/19 04:00 Nasal Cannula 2.0 12/02/19 03:05 104 12/02/19 03:00 97 16 147/127 (134) 93 12/02/19 02:00 88 18 127/64 (85) 97 12/02/19 01:00 82 17 115/55 (75) 100 12/02/19 00:00 Nasal Cannula 2.0 12/02/19 00:00 97.0 83 18 121/83 (96) 99 12/01/19 23:00 82 21 134/82 (99) 97 12/01/19 23:00 81 12/01/19 22:00 85 20 122/78 (93) 97 12/01/19 21:13 111 159/91 12/01/19 21:00 103 22 152/92 (112) 97 12/01/19 20:24 85 18 98/57 (71) 96 12/01/19 20:00 Nasal Cannula 2.0 12/01/19 20:00 98.1 96 22 125/67 (86) 98 12/01/19 19:38 105 12/01/19 19:00 98 18 158/90 (112) 99 12/01/19 18:00 102 19 139/86 (103) 98 12/01/19 17:00 90 24 143/79 (100) 98 12/01/19 16:00 98.2 100 17 145/74 (97) 98 12/01/19 16:00 Nasal Cannula 2.0 12/01/19 16:00 98 12/01/19 15:09 98.2 12/01/19 15:00 98 18 145/76 (99) 96 12/01/19 14:00 94 18 163/74 (103) 96 12/01/19 13:00 103 23 153/68 (96) 96 12/01/19 12:00 98.2 108 22 147/83 (104) 98 12/01/19 12:00 Nasal Cannula 2.0 12/01/19 12:00 93 12/01/19 11:26 99 151/72 12/01/19 11:00 100 23 151/72 (98) 98 12/01/19 10:00 96 23 166/79 (108) 99 12/01/19 09:00 98.7 93 23 148/83 (104) 99 12/01/19 08:33 106 Intake and Output 12/01/19 12/02/19 19:00 07:00 Intake Total 1880.220 ml 800 ml Output Total 1400 ml 650 ml Balance 480.220 ml 150 ml Intake Oral 950 ml 800 ml IV Total 930.220 ml Output Urine Total 1400 ml 650 ml # Bowel Movements 1 Laboratory Tests Test 12/01/19 08:35 12/01/19 11:39 Sodium Level 141 MMOL/L (136-145) Potassium Level 3.7 MMOL/L (3.5-5.1) Chloride Level 100 MMOL/L (98-107) Carbon Dioxide Level 32 MMOL/L (21-32) Anion Gap 9 mmol/L (5-15) Blood Urea Nitrogen 32 mg/dL (7-18) H Creatinine 1.3 MG/DL (0.55-1.30) Estimat Glomerular Filtration Rate 55.9 mL/min (>60) Glucose Level 200 MG/DL (74-106) H Calcium Level 8.7 MG/DL (8.5-10.1) Phosphorus Level 2.4 MG/DL (2.5-4.9) L Magnesium Level 1.5 MG/DL (1.8-2.4) L Ferritin 770 NG/ML (8-388) H Digoxin Level < 0.3 NG/ML (0.5-2.0) L POC Whole Blood Glucose Pending Microbiology Date/Time Source Procedure Growth Status 11/29/19 18:30 Nasal Nares MRSA Culture - Final NO METHICILLIN RESISTANT STAPH AUREUS... Complete 11/29/19 18:30 Rectum - Final NO CARBAPENEM-RESISTANT ENTEROBACTERI... Complete 11/29/19 18:30 Rectum VRE Culture - Final NO VANCOMYCIN RESISTANT ENTEROCOCCUS ... Complete Objective HEAD AND NECK: No JVD. LUNGS: Decreased breath sounds. CARDIOVASCULAR: Irregular S1 and S2 with no gallop or murmur. ABDOMEN: Soft. EXTREMITIES: 1+ pitting edema. Tyler Pascual MD Dec 02, 2019 08:15
[2019-12-02 08:24] LABS: HEMATOCRIT 37.4 % (42.0-52.0); HEMOGLOBIN 11.8 G/DL (14.2-18.0); MEAN CORPUSCULAR VOLUME 94 FL (80-99); PLATELET COUNT 312 K/UL (150-450); RED BLOOD COUNT 3.99 M/UL (4.70-6.10); RED CELL DISTRIBUTION WIDTH 14.3 % (11.6-14.8); WHITE BLOOD COUNT 9.9 K/UL (4.8-10.8)
[2019-12-02 08:35] LABS: INR 0.9 (0.9-1.1)
[2019-12-02 08:49] LABS: ALANINE AMINOTRANSFERASE 33 U/L (12-78); ALBUMIN 2.4 G/DL (3.4-5.0); ALBUMIN/GLOBULIN RATIO 0.6 (1.0-2.7); ALKALINE PHOSPHATASE 46 U/L (46-116); ANION GAP 6 mmol/L (5-15); ASPARTATE AMINO TRANSFERASE 18 U/L (15-37); BILIRUBIN,TOTAL 0.2 MG/DL (0.2-1.0); BLOOD UREA NITROGEN 31 mg/dL (7-18); CALCIUM 8.7 MG/DL (8.5-10.1); CARBON DIOXIDE 33 MMOL/L (21-32); CHLORIDE 103 MMOL/L (98-107); CREATININE 1.5 MG/DL (0.55-1.30); POTASSIUM 4.9 MMOL/L (3.5-5.1); SODIUM 141 MMOL/L (136-145)
[2019-12-02] MEDS ORDERED: Metoprolol Tartrate 100mg tab ORAL SCH (09:00)
[2019-12-02] MEDS ORDERED: Digoxin 0.5mg/2ml Inj IVP SCH (09:00)
[2019-12-02 09:01] LABS: CHOLESTEROL 263 MG/DL (< 200); HDL CHOLESTEROL 47 MG/DL (40-60); PHOSPHORUS 2.4 MG/DL (2.5-4.9); TRIGLYCERIDES 188 MG/DL (30-150)
[2019-12-02] MEDS ORDERED: Tubing IV Secondary IV ONE (09:22)
--- NOTE | 2019-12-02 09:22 | General Progress Note ---
Assessment/Plan Problem List: (1) A-fib ICD Codes: I48.91 - Unspecified atrial fibrillation SNOMED: 86495551 (2) Anemia in CKD (chronic kidney disease) ICD Codes: N18.9 - Chronic kidney disease, unspecified; D63.1 - Anemia in chronic kidney disease SNOMED: 418280850 (3) CKD (chronic kidney disease) ICD Codes: N18.9 - Chronic kidney disease, unspecified SNOMED: 168227501 (4) Diabetes ICD Codes: E11.9 - Type 2 diabetes mellitus without complications SNOMED: 98464819 (5) Rheumatoid arthritis ICD Codes: M06.9 - Rheumatoid arthritis, unspecified SNOMED: 72590405 (6) Chronic systolic heart failure ICD Codes: I50.22 - Chronic systolic (congestive) heart failure SNOMED: 710870654 (7) IVÁN (acute kidney injury) ICD Codes: N17.9 - Acute kidney failure, unspecified SNOMED: 2129901, 50858187 (8) Hyperlipidemia ICD Codes: E78.5 - Hyperlipidemia, unspecified SNOMED: 85909619 Status: doing well, stable Assessment/Plan: 64 year old gentleman with a past medical history of rheumatoid arthritis and non insulin dependant DM comes to the hospital from PCP office with palpitations found to be in A. fib RVR. #Atrial flutter/fibrillation with rapid ventricular response #Palpitations #HTN -Not a candidate for cardioversion -stop diltiazem, start Metoprolol especially in light of decreased systolic function as below -continue Eliquis 2.5mg BID for CHADsVASc 2 -2D echo reviewed, has evidence of decreased systolic function -Consulted Cardiology, appreciate recommendations. Will transfer out of ICU to telemetry now that off of drip - optimize electrolytes #HLD #Chronic systolic heart failure with EF 40%: etiology uncertain. differential includes tachycardia mediated cardiomyopathy, CAD #Orthopnea #Elevated BNP -2D echo results noted -Strict Is and Os, daily weights -Fluid and salt restriction - will discuss with Cardiology regarding timing/dose of starting maintenance lasix - sent TSH, lipid panel, A1c. A1c shows poorly controlled T2DM with A1c 8.1. Lipid panel with LDL > 190 and in light of risk factors, ASCVD is elevated making him a candidate for high intensity statin. TSH wnl - will check LFT and CK. Will discuss with patient regarding initiation of high intensity statin medication - patient would likely benefit from evaluation of CAD as an outpatient #DM type 2 - refused ISS and wants his home metformin, holding metformin while inpatient -Carb Consistent Diet -HgA1c #IVÁN on CKD - Hypertensive Vs. Diabetic Nephropathy vs pre-renal from poor forward flow from Afib RVR #Anemia of CKD -Hold nephrotoxic medications -Urine studies -Nephrology following, appreciate recommendations #Rheumatoid arthritis -resume home leflunomide #Dispo: patient to be discharged home once afib RVR resolved. Patient to follow up with PCP Dr. Pimentel I spent 35 min with majority face to face time (>50%) with patient, coordinated with consultants. Discussed with nursing staff. Independent viewing of imaging Subjective Date patient seen: Dec 02, 2019 Time patient seen: 09:07 Constitutional: Denies: chills, diaphoresis, fever HEENT: Denies: eye pain, blurred vision, tearing Cardiovascular: Reports: irregular heart rate; Denies: chest pain, edema Respiratory: Denies: cough, orthopnea, shortness of breath Gastrointestinal/Abdominal: Denies: abdomen distended, abdominal pain, nausea, vomiting Genitourinary: Denies: discharge, frequency Neurologic/Psychiatric: Denies: weakness Endocrine: Denies: unexplained weight gain, unexplained weight loss Hematologic/Lymphatic: Denies: easy bleeding, easy bruising Allergies: Coded Allergies: No Known Allergies (Unverified , 11/29/19) All Systems: reviewed and negative except above Subjective patient feeling well. thinks his tachycardia and palpitations are improving and wants to go home, but understands that we recommend that he wait until his heart rate is better controlled Objective Last 24 Hour Vital Signs Date Time Temp Pulse Resp B/P (MAP) Pulse Ox O2 Delivery O2 Flow Rate FiO2 12/02/19 08:11 118 147/91 12/02/19 08:11 118 12/02/19 08:10 118 12/02/19 07:00 115 20 125/68 (87) 99 12/02/19 06:00 96 18 136/76 (96) 99 12/02/19 05:00 101 19 146/88 (107) 98 12/02/19 04:00 96.9 93 22 131/96 (108) 99 12/02/19 04:00 Nasal Cannula 2.0 12/02/19 03:05 104 12/02/19 03:00 97 16 147/127 (134) 93 12/02/19 02:00 88 18 127/64 (85) 97 12/02/19 01:00 82 17 115/55 (75) 100 12/02/19 00:00 Nasal Cannula 2.0 12/02/19 00:00 97.0 83 18 121/83 (96) 99 12/01/19 23:00 82 21 134/82 (99) 97 12/01/19 23:00 81 12/01/19 22:00 85 20 122/78 (93) 97 12/01/19 21:13 111 159/91 12/01/19 21:00 103 22 152/92 (112) 97 12/01/19 20:24 85 18 98/57 (71) 96 12/01/19 20:00 Nasal Cannula 2.0 12/01/19 20:00 98.1 96 22 125/67 (86) 98 12/01/19 19:38 105 12/01/19 19:00 98 18 158/90 (112) 99 12/01/19 18:00 102 19 139/86 (103) 98 12/01/19 17:00 90 24 143/79 (100) 98 12/01/19 16:00 98.2 100 17 145/74 (97) 98 12/01/19 16:00 Nasal Cannula 2.0 12/01/19 16:00 98 12/01/19 15:09 98.2 12/01/19 15:00 98 18 145/76 (99) 96 12/01/19 14:00 94 18 163/74 (103) 96 12/01/19 13:00 103 23 153/68 (96) 96 12/01/19 12:00 98.2 108 22 147/83 (104) 98 12/01/19 12:00 Nasal Cannula 2.0 12/01/19 12:00 93 12/01/19 11:26 99 151/72 12/01/19 11:00 100 23 151/72 (98) 98 12/01/19 10:00 96 23 166/79 (108) 99 Intake and Output 12/01/19 12/02/19 19:00 07:00 Intake Total 1880.220 ml 800 ml Output Total 1400 ml 650 ml Balance 480.220 ml 150 ml Intake Oral 950 ml 800 ml IV Total 930.220 ml Output Urine Total 1400 ml 650 ml # Bowel Movements 1 Laboratory Tests 12/01/19 11:39: POC Whole Blood Glucose [Pending] 12/02/19 08:00: White Blood Count 9.9, Red Blood Count 3.99L, Hemoglobin 11.8L, Hematocrit 37.4L , Mean Corpuscular Volume 94, Mean Corpuscular Hemoglobin 29.7, Mean Corpuscular Hemoglobin Concent 31.6L, Red Cell Distribution Width 14.3, Platelet Count 312, Mean Platelet Volume 7.6, Neutrophils (%) (Auto) , Lymphocytes (%) (Auto) , Monocytes (%) (Auto) , Eosinophils (%) (Auto) , Basophils (%) (Auto) , Neutrophils % (Manual) [Pending], Lymphocytes % (Manual) [Pending], Platelet Estimate [Pending], Platelet Morphology [Pending], Erythrocyte Sedimentation Rate [Pending], Prothrombin Time 10.5, Prothromb Time International Ratio 0.9, Activated Partial Thromboplast Time 21L, Sodium Level 141, Potassium Level 4.9, Chloride Level 103, Carbon Dioxide Level 33H, Anion Gap 6, Blood Urea Nitrogen 31H, Creatinine 1.5H, Estimat Glomerular Filtration Rate 47.4, Glucose Level 268H, Hemoglobin A1c 8.1H, Lactic Acid Level 1.50, Calcium Level 8.7, Phosphorus Level 2.4L, Magnesium Level 1.9, Total Bilirubin 0.2, Aspartate Amino Transf (AST/SGOT) 18, Alanine Aminotransferase (ALT/SGPT) 33, Alkaline Phosphatase 46, Troponin I 0.021, C-Reactive Protein, Quantitative 10.8H, Total Protein 6.6, Albumin 2.4L, Globulin 4.2, Albumin/Globulin Ratio 0.6L, Triglycerides Level 188H, Cholesterol Level 263H, LDL Cholesterol 191H, HDL Cholesterol 47, Cholesterol/HDL Ratio 5.6H, Thyroid Stimulating Hormone (TSH ) 0.401, Digoxin Level 0.3L Height (Feet): 5 Height (Inches): 5.00 Weight (Pounds): 185 General Appearance: WD/WN, no apparent distress, alert EENT: PERRL/EOMI, pharynx normal Neck: non-tender, normal alignment, supple Cardiovascular: normal peripheral pulses, no JVD, tachycardia, irregularly irregular Respiratory/Chest: chest wall non-tender, lungs clear, normal breath sounds Abdomen: normal bowel sounds, non tender, no mass Pelvis: no active bleeding Extremities: normal range of motion, no calf tenderness Edema: no edema noted Arm (L), no edema noted Arm (R), no edema noted Leg (L), no edema noted Leg (R), no edema noted Pedal (L), no edema noted Pedal (R) Neurologic: no motor/sensory deficits, alert, oriented x 3 Skin: normal pigmentation, warm/dry Maurice Dunham M.D. Dec 02, 2019 09:22
--- NOTE | 2019-12-02 09:36 | Nephrology Progress Note ---
Assessment/Plan Plan #IVÁN on CKD #Diabetic nephropathy #afib with RVR #acute on chronic CHF #HTN #IDDM #HLD - recommend lasix 40 daily on dc - replete mag and K to keep > 2.2 and 4.4 - rate control per cardiology - on digoxin - DC dilt 90 q6hr - metop 100mg TID - continue apixaban - avoid nephrotoxins - strict I&Os - daily weights Time spent 75 min - greater than 50% on care coordination and counseling Subjective ROS Limited/Unobtainable: No Constitutional: Reports: malaise, weakness HEENT: Denies: no symptoms, eye pain, blurred vision, tearing, double vision, ear pain, ear discharge, nose pain, nose congestion, throat pain, throat swelling, mouth pain, mouth swelling, other Genitourinary: Denies: no symptoms, burning, discharge, frequency, flank pain, hematuria, incontinence, pain, urgency, other Neurologic/Psychiatric: Denies: no symptoms, anxiety, depressed, emotional problems, headache, numbness, paresthesia, pre-existing deficit, seizure, tingling, tremors, weakness, other Subjective Cr 1.5 Heart rate uptrending EF 40%] Objective Objective Last 24 Hour Vital Signs Date Time Temp Pulse Resp B/P (MAP) Pulse Ox O2 Delivery O2 Flow Rate FiO2 12/02/19 08:11 118 147/91 12/02/19 08:11 118 12/02/19 08:10 118 12/02/19 07:00 115 20 125/68 (87) 99 12/02/19 06:00 96 18 136/76 (96) 99 12/02/19 05:00 101 19 146/88 (107) 98 12/02/19 04:00 96.9 93 22 131/96 (108) 99 12/02/19 04:00 Nasal Cannula 2.0 12/02/19 03:05 104 12/02/19 03:00 97 16 147/127 (134) 93 12/02/19 02:00 88 18 127/64 (85) 97 12/02/19 01:00 82 17 115/55 (75) 100 12/02/19 00:00 Nasal Cannula 2.0 12/02/19 00:00 97.0 83 18 121/83 (96) 99 12/01/19 23:00 82 21 134/82 (99) 97 12/01/19 23:00 81 12/01/19 22:00 85 20 122/78 (93) 97 12/01/19 21:13 111 159/91 12/01/19 21:00 103 22 152/92 (112) 97 12/01/19 20:24 85 18 98/57 (71) 96 12/01/19 20:00 Nasal Cannula 2.0 12/01/19 20:00 98.1 96 22 125/67 (86) 98 12/01/19 19:38 105 12/01/19 19:00 98 18 158/90 (112) 99 12/01/19 18:00 102 19 139/86 (103) 98 12/01/19 17:00 90 24 143/79 (100) 98 12/01/19 16:00 98.2 100 17 145/74 (97) 98 12/01/19 16:00 Nasal Cannula 2.0 12/01/19 16:00 98 12/01/19 15:09 98.2 12/01/19 15:00 98 18 145/76 (99) 96 12/01/19 14:00 94 18 163/74 (103) 96 12/01/19 13:00 103 23 153/68 (96) 96 12/01/19 12:00 98.2 108 22 147/83 (104) 98 12/01/19 12:00 Nasal Cannula 2.0 12/01/19 12:00 93 12/01/19 11:26 99 151/72 12/01/19 11:00 100 23 151/72 (98) 98 12/01/19 10:00 96 23 166/79 (108) 99 Intake and Output 12/01/19 12/02/19 18:59 06:59 Intake Total 1796.887 ml 883.333 ml Output Total 1400 ml 650 ml Balance 396.887 ml 233.333 ml Intake Oral 950 ml 800 ml IV Total 846.887 ml 83.333 ml Output Urine Total 1400 ml 650 ml # Bowel Movements 1 Laboratory Tests 12/01/19 11:39: POC Whole Blood Glucose [Pending] 12/02/19 08:00: White Blood Count 9.9, Red Blood Count 3.99L, Hemoglobin 11.8L, Hematocrit 37.4L , Mean Corpuscular Volume 94, Mean Corpuscular Hemoglobin 29.7, Mean Corpuscular Hemoglobin Concent 31.6L, Red Cell Distribution Width 14.3, Platelet Count 312, Mean Platelet Volume 7.6, Neutrophils (%) (Auto) , Lymphocytes (%) (Auto) , Monocytes (%) (Auto) , Eosinophils (%) (Auto) , Basophils (%) (Auto) , Neutrophils % (Manual) [Pending], Lymphocytes % (Manual) [Pending], Platelet Estimate [Pending], Platelet Morphology [Pending], Erythrocyte Sedimentation Rate 91H, Prothrombin Time 10.5, Prothromb Time International Ratio 0.9, Activated Partial Thromboplast Time 21L, Sodium Level 141, Potassium Level 4.9, Chloride Level 103, Carbon Dioxide Level 33H, Anion Gap 6, Blood Urea Nitrogen 31H, Creatinine 1.5H, Estimat Glomerular Filtration Rate 47.4, Glucose Level 268H, Hemoglobin A1c 8.1H, Lactic Acid Level 1.50, Calcium Level 8.7, Phosphorus Level 2.4L, Magnesium Level 1.9, Total Bilirubin 0.2, Aspartate Amino Transf (AST/SGOT) 18, Alanine Aminotransferase (ALT/SGPT) 33, Alkaline Phosphatase 46, Troponin I 0.021, C-Reactive Protein, Quantitative 10.8H, Total Protein 6.6, Albumin 2.4L, Globulin 4.2, Albumin/Globulin Ratio 0.6L, Triglycerides Level 188H, Cholesterol Level 263H, LDL Cholesterol 191H, HDL Cholesterol 47, Cholesterol/HDL Ratio 5.6H, Thyroid Stimulating Hormone (TSH ) 0.401, Digoxin Level 0.3L Height (Feet): 5 Height (Inches): 5.00 Weight (Pounds): 185 Berenice Pimentel M.D. Dec 02, 2019 09:36
--- NOTE | 2019-12-02 10:00 | NUR ---
NURSE NOTES: Pt self-repositioned in bed, linens changed, oral care provided, pt consumed 75 % of breakfast. No acute distress noted. Will continue to monitor.
--- NOTE | 2019-12-02 11:00 | NUR ---
NURSE NOTES: Dr Dunham assessing pt at bedside.
--- NOTE | 2019-12-02 11:43 | NUR ---
*-* INSURANCE *-* ALL AVAILABLE CLINICALS AND REVIEWS HAVE BEEN FAXED TO: [facility] AUTH#[id number] P [phone] F [phone] Addendum: 12/02/19 at 1637 by PAL TELLEZ *-* Authorization *-* Received faxed authorization los 11/28- has been approved @ acute loc ref# [id number] hard copy faxed to admitting and the business office
--- NOTE | 2019-12-02 12:00 | NUR ---
NURSE NOTES: Pt eating lunch in bed, no distress noted at this time. Will continue to monitor.
--- NOTE | 2019-12-02 14:00 | NUR ---
NURSE NOTES: Pt self-repositioned, offered oral care, bed linens changed again, no acute distress noted.
--- NOTE | 2019-12-02 14:23 | Surgery Progress Note ---
Surgery Progress Note Subjective Symptoms: improved, tolerating diet, voiding well, passing flatus, BM Objective Last 24 Hour Vital Signs Date Time Temp Pulse Resp B/P (MAP) Pulse Ox O2 Delivery O2 Flow Rate FiO2 12/02/19 14:06 113 135/88 12/02/19 14:00 111 19 135/88 (104) 100 12/02/19 13:00 108 20 143/72 (95) 100 12/02/19 12:00 97.7 98 21 146/82 (103) 100 12/02/19 12:00 Nasal Cannula 2.0 12/02/19 12:00 103 12/02/19 11:00 90 21 136/79 (98) 100 12/02/19 10:00 84 21 133/103 (113) 100 12/02/19 09:00 110 22 145/100 (115) 99 12/02/19 08:11 118 147/91 12/02/19 08:11 118 12/02/19 08:10 118 12/02/19 08:00 Nasal Cannula 2.0 12/02/19 08:00 122 12/02/19 08:00 98.4 121 24 147/91 (109) 99 12/02/19 07:00 115 20 125/68 (87) 99 12/02/19 06:00 96 18 136/76 (96) 99 12/02/19 05:00 101 19 146/88 (107) 98 12/02/19 04:00 96.9 93 22 131/96 (108) 99 12/02/19 04:00 Nasal Cannula 2.0 12/02/19 03:05 104 12/02/19 03:00 97 16 147/127 (134) 93 12/02/19 02:00 88 18 127/64 (85) 97 12/02/19 01:00 82 17 115/55 (75) 100 12/02/19 00:00 Nasal Cannula 2.0 12/02/19 00:00 97.0 83 18 121/83 (96) 99 12/01/19 23:00 82 21 134/82 (99) 97 12/01/19 23:00 81 12/01/19 22:00 85 20 122/78 (93) 97 12/01/19 21:13 111 159/91 12/01/19 21:00 103 22 152/92 (112) 97 12/01/19 20:24 85 18 98/57 (71) 96 12/01/19 20:00 Nasal Cannula 2.0 12/01/19 20:00 98.1 96 22 125/67 (86) 98 12/01/19 19:38 105 12/01/19 19:00 98 18 158/90 (112) 99 12/01/19 18:00 102 19 139/86 (103) 98 12/01/19 17:00 90 24 143/79 (100) 98 12/01/19 16:00 98.2 100 17 145/74 (97) 98 12/01/19 16:00 Nasal Cannula 2.0 12/01/19 16:00 98 12/01/19 15:09 98.2 12/01/19 15:00 98 18 145/76 (99) 96 I&O Intake and Output 12/01/19 12/02/19 19:00 07:00 Intake Total 1880.220 ml 800 ml Output Total 1400 ml 650 ml Balance 480.220 ml 150 ml Intake Oral 950 ml 800 ml IV Total 930.220 ml Output Urine Total 1400 ml 650 ml # Bowel Movements 1 Cardiovascular: RSR Respiratory: clear Abdomen: soft, non-tender, present bowel sounds Extremities: no edema, no tenderness, no cyanosis Laboratory Tests Test 12/02/19 08:00 White Blood Count 9.9 K/UL (4.8-10.8) Red Blood Count 3.99 M/UL (4.70-6.10) L Hemoglobin 11.8 G/DL (14.2-18.0) L Hematocrit 37.4 % (42.0-52.0) L Mean Corpuscular Volume 94 FL (80-99) Mean Corpuscular Hemoglobin 29.7 PG (27.0-31.0) Mean Corpuscular Hemoglobin Concent 31.6 G/DL (32.0-36.0) L Red Cell Distribution Width 14.3 % (11.6-14.8) Platelet Count 312 K/UL (150-450) Mean Platelet Volume 7.6 FL (6.5-10.1) Neutrophils (%) (Auto) % (45.0-75.0) Lymphocytes (%) (Auto) % (20.0-45.0) Monocytes (%) (Auto) % (1.0-10.0) Eosinophils (%) (Auto) % (0.0-3.0) Basophils (%) (Auto) % (0.0-2.0) Differential Total Cells Counted 100 Neutrophils % (Manual) 88 % (45-75) H Lymphocytes % (Manual) 8 % (20-45) L Monocytes % (Manual) 2 % (1-10) Eosinophils % (Manual) 2 % (0-3) Basophils % (Manual) 0 % (0-2) Band Neutrophils 0 % (0-8) Platelet Estimate Adequate Platelet Morphology Normal Polychromasia 1+ Anisocytosis 1+ Erythrocyte Sedimentation Rate 91 MM/HR (0-20) H Prothrombin Time 10.5 SEC (9.30-11.50) Prothromb Time International Ratio 0.9 (0.9-1.1) Activated Partial Thromboplast Time 21 SEC (23-33) L Sodium Level 141 MMOL/L (136-145) Potassium Level 4.9 MMOL/L (3.5-5.1) Chloride Level 103 MMOL/L (98-107) Carbon Dioxide Level 33 MMOL/L (21-32) H Anion Gap 6 mmol/L (5-15) Blood Urea Nitrogen 31 mg/dL (7-18) H Creatinine 1.5 MG/DL (0.55-1.30) H Estimat Glomerular Filtration Rate 47.4 mL/min (>60) Glucose Level 268 MG/DL (74-106) H Hemoglobin A1c 8.1 % (4.3-6.0) H Lactic Acid Level 1.50 mmol/L (0.4-2.0) Calcium Level 8.7 MG/DL (8.5-10.1) Phosphorus Level 2.4 MG/DL (2.5-4.9) L Magnesium Level 1.9 MG/DL (1.8-2.4) Total Bilirubin 0.2 MG/DL (0.2-1.0) Aspartate Amino Transf (AST/SGOT) 18 U/L (15-37) Alanine Aminotransferase (ALT/SGPT) 33 U/L (12-78) Alkaline Phosphatase 46 U/L (46-116) Troponin I 0.021 ng/mL (0.000-0.056) C-Reactive Protein, Quantitative 10.8 mg/dL (0.00-0.90) H Total Protein 6.6 G/DL (6.4-8.2) Albumin 2.4 G/DL (3.4-5.0) L Globulin 4.2 g/dL Albumin/Globulin Ratio 0.6 (1.0-2.7) L Triglycerides Level 188 MG/DL (30-150) H Cholesterol Level 263 MG/DL (< 200) H LDL Cholesterol 191 mg/dL (<100) H HDL Cholesterol 47 MG/DL (40-60) Cholesterol/HDL Ratio 5.6 (3.3-4.4) H Thyroid Stimulating Hormone (TSH) 0.401 uiU/mL (0.358-3.740) Digoxin Level 0.3 NG/ML (0.5-2.0) L Plan Problems: (1) Leukocytosis Assessment & Plan: 64-year-old male A. fib RVR in ICU identified to have leukocytosis etiology unknown. Work-up currently pending. UA ordered. Renal ultrasound noted. Awaiting microbiology and lab results. No abscess or abdominal etiology identified fortunately. We will follow with recommendations. improved sinus now comfortable labs improved no n/v/f/c d/c planning Thank you for letting participate patient's care (2) Rheumatoid arthritis (3) Diabetes (4) CKD (chronic kidney disease) Assessment & Plan: Right kidney: Right kidney 10.6cm No stones. No hydronephrosis. Left kidney: Left kidney 12 No stones. No hydronephrosis. Bladder: Urinary bladder volume 145mL. Other findings: No postvoid residual able to be calculated as patient had voided prior to exam and was not able to void following initial imaging. IMPRESSION: 1. No postvoid residual able to be calculated as patient had voided prior to exam and was not able to void following initial imaging. 2. Otherwise unremarkable study. 3. Urinary bladder volume 145mL. (5) Anemia in CKD (chronic kidney disease) (6) A-fib (7) Chronic systolic heart failure Rahul Alexandre Dec 02, 2019 14:23
--- NOTE | 2019-12-02 14:37 | Diagnostic Imaging Report ---
Indication: Chest pain Technique: One view of the chest Comparison: 11/29/2019 Findings: Interim development of infiltrates bilaterally, especially in the right upper lobe and left perihilar region. There are bilateral pleural effusions now present. There is suggestion of generalized mild congestion. The heart is borderline enlarged. Impression: Bilateral infiltrates versus edema and mild generalized interstitial congestion, developing since prior study 11/29/2019 Small bilateral pleural effusions.
--- NOTE | 2019-12-02 15:30 | NUR ---
CASE MANAGEMENT: REVIEW 12/02/2019 SI: A FIB VS: T 97.7 HR 98 RR 103 RR 146/82 SATS 100% ON 2L/NC LABS: CO2 33 BUN 31 CR 1.5 GLU 268 CA 8.1 CRP 10.8 IS:ELIQUIS PO BID DIGOXIN PO QD INSULIN ASPART SUBQ AC/HS LOPRESSOR PO Q8H ICU PLAN OF CARE: transfer out of ICU to telemetry
--- NOTE | 2019-12-02 16:00 | NUR ---
NURSE NOTES: Pt self repositioned, no distress noted. Will continue to monitor.
[2019-12-02] MEDS ORDERED: Nitroglycerin Subl 0.4mg tab SL PRN (18:15)
--- NOTE | 2019-12-02 18:15 | NUR ---
TRANSFER TO FLOOR: Patient transferred to tele floor via hosptial bed, tele monitor, and O2 tank, in stable condition, per Dr Pimentel. Report given to CHANDANA Gibson. Belongings and medications given to CHANDANA Gibson.
--- NOTE | 2019-12-02 18:36 | NUR ---
NURSE NOTES: Received pt from TUBE CARRIER Lesley, pt is A&O x4, pt has NC 2LMP, pt has intact iv access RAC 20G SL. pt is on continues heart monitoring with A FIB HR 110. skin is intact only bruises bi arms due to iv access. no complain of pain at this moment, all belongings checked with RN and are with pt, pt has 20$ lua and wants to keep it by himself. all needs attended, bed is locked and is in the lowest position, call light within easy reach. will continue to monitor.
[2019-12-02] MEDS ORDERED: Milk of Magnesia 30ml Ud ORAL PRN (18:45)
--- NOTE | 2019-12-02 19:29 | NUR ---
NURSE NOTES: Received patient from Arthur ELLINGTON. Patient in stable condition. Patient is calm and comfortable in bed. No s/s of distress or pain. Alert and oriented x4. Able to ambulate well with steady gait. IV site patent and intact Right AC 20G saline locked. Bedside table and call light within reach. Bed in lowest position and locked. Will continue plan of care.
--- NOTE | 2019-12-02 19:31 | NUR ---
HAND-OFF: Report given to CHANDANA Drew. Pt is awake and stable, no stress noted, endorsed plan of care. endorsed to educate pt to F/U with office support associate after discharge.
[2019-12-03] VITALS: BP 121/72
[2019-12-03 04:00] VITALS: BP 150/94
[2019-12-03] MEDS: Metoprolol Tartrate 100mg tab ORAL SCH ×3 (05:48→21:48)
[2019-12-03] MEDS: NovoLOG Insulin Flexpen SUBQ SCH ×4 (05:50→21:49)
--- NOTE | 2019-12-03 07:53 | NUR ---
HAND-OFF: Report given to Verito ELLINGTON. Patient in stable condition. Endorsed plan of care.
[2019-12-03 08:00] VITALS: BP 132/93
[2019-12-03 08:38] LABS: BASOPHILS % (AUTO) 0.7 % (0.0-2.0); EOSINOPHILS % (AUTO) 1.4 % (0.0-3.0); HEMATOCRIT 39.8 % (42.0-52.0); HEMOGLOBIN 12.5 G/DL (14.2-18.0); LYMPHOCYTES % (AUTO) 16.6 % (20.0-45.0); MEAN CORPUSCULAR VOLUME 93 FL (80-99); MONOCYTES % (AUTO) 2.3 % (1.0-10.0); PLATELET COUNT 369 K/UL (150-450); RED BLOOD COUNT 4.26 M/UL (4.70-6.10); RED CELL DISTRIBUTION WIDTH 14.3 % (11.6-14.8); WHITE BLOOD COUNT 8.6 K/UL (4.8-10.8)
[2019-12-03 09:15] LABS: ANION GAP 6 mmol/L (5-15); BLOOD UREA NITROGEN 34 mg/dL (7-18); CALCIUM 9.1 MG/DL (8.5-10.1); CARBON DIOXIDE 31 MMOL/L (21-32); CHLORIDE 103 MMOL/L (98-107); CREATININE 1.2 MG/DL (0.55-1.30); POTASSIUM 4.7 MMOL/L (3.5-5.1); SODIUM 140 MMOL/L (136-145)
[2019-12-03 09:17] LABS: CREATINE KINASE 29 U/L (26-308)
[2019-12-03] MEDS: Eliquis 2.5mg tablet ORAL SCH ×2 (09:55→17:25)
[2019-12-03] MEDS: Digoxin 0.125mg tab ORAL SCH (09:55)
[2019-12-03] MEDS: LEFLUNOMIDE 20 MG ORAL SCH (09:56)
--- NOTE | 2019-12-03 10:59 | General Progress Note ---
Assessment/Plan Problem List: (1) A-fib ICD Codes: I48.91 - Unspecified atrial fibrillation SNOMED: 56423251 (2) Anemia in CKD (chronic kidney disease) ICD Codes: N18.9 - Chronic kidney disease, unspecified; D63.1 - Anemia in chronic kidney disease SNOMED: 428556534 (3) CKD (chronic kidney disease) ICD Codes: N18.9 - Chronic kidney disease, unspecified SNOMED: 959452096 (4) Diabetes ICD Codes: E11.9 - Type 2 diabetes mellitus without complications SNOMED: 32784742 (5) Rheumatoid arthritis ICD Codes: M06.9 - Rheumatoid arthritis, unspecified SNOMED: 09215225 (6) Chronic systolic heart failure ICD Codes: I50.22 - Chronic systolic (congestive) heart failure SNOMED: 740320425 (7) IVÁN (acute kidney injury) ICD Codes: N17.9 - Acute kidney failure, unspecified SNOMED: 1724084, 30396167 (8) Hyperlipidemia ICD Codes: E78.5 - Hyperlipidemia, unspecified SNOMED: 48614641 Status: doing well, stable Assessment/Plan: 64 year old gentleman with a past medical history of rheumatoid arthritis and non insulin dependant DM comes to the hospital from PCP office with palpitations found to be in A. fib RVR. #Atrial flutter/fibrillation with rapid ventricular response #Palpitations #HTN -Not a candidate for cardioversion -stop diltiazem, continue Metoprolol especially in light of decreased systolic function as below -continue Eliquis 2.5mg BID for CHADsVASc 2 -2D echo reviewed, has evidence of decreased systolic function -Consulted Cardiology, appreciate recommendations - continue monitoring on telemetry - optimize electrolytes #HLD #Chronic systolic heart failure with EF 40%: etiology uncertain. differential includes tachycardia mediated cardiomyopathy, CAD #Orthopnea #Elevated BNP -2D echo results noted -Strict Is and Os, daily weights -Fluid and salt restriction - will discuss with Cardiology regarding timing/dose of starting maintenance lasix - sent TSH, lipid panel, A1c. A1c shows poorly controlled T2DM with A1c 8.1. Lipid panel with LDL > 190 and in light of risk factors, ASCVD is elevated making him a candidate for high intensity statin. TSH wnl - LFT and CK within normal limits. Will discuss with patient regarding initiation of high intensity statin medication - patient would likely benefit from evaluation of CAD as an outpatient #DM type 2 - holding home metformin while inpatient, will resume for discharge -Carb Consistent Diet -HgA1c #IVÁN on CKD - Hypertensive Vs. Diabetic Nephropathy vs pre-renal from poor forward flow from Afib RVR #Anemia of CKD -Hold nephrotoxic medications -Nephrology following, appreciate recommendations #Rheumatoid arthritis -resume home leflunomide #Dispo: patient to be discharged home once afib RVR resolved. Patient to follow up with PCP Dr. Pimentel as an outpatient. Of note, for cross-coverage purposes, patient fully has capacity to leave against medical advice if he desires, but we would still recommend he stay for cardiac monitoring I spent 35 min with majority face to face time (>50%) with patient, coordinated with consultants. Discussed with nursing staff. Independent viewing of imaging Subjective Date patient seen: Dec 03, 2019 Time patient seen: 10:54 Constitutional: Denies: chills, diaphoresis, fever HEENT: Denies: eye pain, blurred vision, double vision Cardiovascular: Reports: irregular heart rate; Denies: chest pain, edema, lightheadedness, palpitations Respiratory: Denies: cough, orthopnea, shortness of breath Gastrointestinal/Abdominal: Denies: abdomen distended, abdominal pain, diarrhea , nausea, vomiting Genitourinary: Denies: burning, discharge, frequency Neurologic/Psychiatric: Denies: anxiety Endocrine: Denies: intolerance to cold, intolerance to heat Hematologic/Lymphatic: Denies: anemia, easy bleeding, easy bruising Allergies: Coded Allergies: No Known Allergies (Unverified , 11/29/19) All Systems: reviewed and negative except above Subjective patient feeling well. he denies feeling any symptoms including palpitations, dizziness, weakness including with ambulation. he very much wants to go home, and was informed that his heart rate is still borderline and needs close monitoring Objective Last 24 Hour Vital Signs Date Time Temp Pulse Resp B/P (MAP) Pulse Ox O2 Delivery O2 Flow Rate FiO2 12/03/19 10:01 107 12/03/19 09:55 109 12/03/19 08:00 98.0 109 18 132/93 (106) 96 12/03/19 05:48 98 150/94 12/03/19 04:00 98 12/03/19 04:00 96.1 94 20 150/94 (112) 95 12/03/19 04:00 Nasal Cannula 2.0 12/03/19 00:00 97.9 90 20 121/72 (88) 95 12/03/19 00:00 79 12/03/19 00:00 Nasal Cannula 2.0 12/02/19 21:38 63 140/77 12/02/19 20:00 Nasal Cannula 2.0 12/02/19 20:00 107 12/02/19 20:00 97.5 90 20 140/77 (98) 95 12/02/19 18:41 97.7 110 20 143/77 (99) 98 12/02/19 17:00 104 27 140/62 (88) 99 12/02/19 16:00 99 12/02/19 16:00 Nasal Cannula 2.0 12/02/19 16:00 98.2 95 20 131/79 (96) 100 12/02/19 15:00 102 22 137/80 (99) 100 12/02/19 14:06 113 135/88 12/02/19 14:00 111 19 135/88 (104) 100 12/02/19 13:00 108 20 143/72 (95) 100 12/02/19 12:00 97.7 98 21 146/82 (103) 100 12/02/19 12:00 Nasal Cannula 2.0 12/02/19 12:00 103 12/02/19 11:00 90 21 136/79 (98) 100 Intake and Output 12/02/19 12/03/19 19:00 07:00 Intake Total 700 ml Output Total 550 ml Balance 150 ml Intake Oral 600 ml IV Total 100 ml Output Urine Total 550 ml # Voids 3 # Bowel Movements 4 4 Laboratory Tests 12/02/19 20:56: POC Whole Blood Glucose 148H 12/03/19 04:56: POC Whole Blood Glucose 158H 12/03/19 08:00: White Blood Count 8.6, Red Blood Count 4.26L, Hemoglobin 12.5L, Hematocrit 39.8L , Mean Corpuscular Volume 93, Mean Corpuscular Hemoglobin 29.4, Mean Corpuscular Hemoglobin Concent 31.5L, Red Cell Distribution Width 14.3, Platelet Count 369, Mean Platelet Volume 8.0, Neutrophils (%) (Auto) 79.0H, Lymphocytes (%) (Auto) 16.6L, Monocytes (%) (Auto) 2.3, Eosinophils (%) (Auto) 1.4, Basophils (%) (Auto) 0.7, Erythrocyte Sedimentation Rate 66H, Sodium Level 140, Potassium Level 4.7, Chloride Level 103, Carbon Dioxide Level 31, Anion Gap 6, Blood Urea Nitrogen 34H, Creatinine 1.2, Estimat Glomerular Filtration Rate > 60, Glucose Level 196H, Calcium Level 9.1, Magnesium Level 1.7L, Total Creatine Kinase 29, C-Reactive Protein, Quantitative 5.9H, Digoxin Level 0.5, HIV (1&2) Antibody Rapid Negative Height (Feet): 5 Height (Inches): 5.00 Weight (Pounds): 185 General Appearance: WD/WN, no apparent distress, alert EENT: PERRL/EOMI, normal ENT inspection, pharynx normal Neck: non-tender, normal alignment, supple, normal inspection Cardiovascular: normal peripheral pulses, no JVD, tachycardia, irregularly irregular Respiratory/Chest: chest wall non-tender, lungs clear, normal breath sounds, no respiratory distress Abdomen: normal bowel sounds, soft, no mass Pelvis: no active bleeding Extremities: normal range of motion Edema: no edema noted Arm (L), no edema noted Arm (R), no edema noted Leg (L), no edema noted Leg (R), no edema noted Pedal (L), no edema noted Pedal (R) Neurologic: no motor/sensory deficits, alert, oriented x 3, responsive, normal mood/affect Skin: normal pigmentation, warm/dry Maurice Dunham M.D. Dec 03, 2019 10:59
[2019-12-03 12:00] VITALS: BP 147/92
--- NOTE | 2019-12-03 12:03 | Surgery Progress Note ---
Surgery Progress Note Subjective Additional Comments Tachyarrhythmias. Her rate in the 150s when he stood up earlier today. No nausea vomiting fever chills. Asymptomatic. States he feels well. Labs noted imaging reviewed Objective Last 24 Hour Vital Signs Date Time Temp Pulse Resp B/P (MAP) Pulse Ox O2 Delivery O2 Flow Rate FiO2 12/03/19 10:01 107 12/03/19 09:55 109 12/03/19 08:00 98.0 109 18 132/93 (106) 96 12/03/19 05:48 98 150/94 12/03/19 04:00 98 12/03/19 04:00 96.1 94 20 150/94 (112) 95 12/03/19 04:00 Nasal Cannula 2.0 12/03/19 00:00 97.9 90 20 121/72 (88) 95 12/03/19 00:00 79 12/03/19 00:00 Nasal Cannula 2.0 12/02/19 21:38 63 140/77 12/02/19 20:00 Nasal Cannula 2.0 12/02/19 20:00 107 12/02/19 20:00 97.5 90 20 140/77 (98) 95 12/02/19 18:41 97.7 110 20 143/77 (99) 98 12/02/19 17:00 104 27 140/62 (88) 99 12/02/19 16:00 99 12/02/19 16:00 Nasal Cannula 2.0 12/02/19 16:00 98.2 95 20 131/79 (96) 100 12/02/19 15:00 102 22 137/80 (99) 100 12/02/19 14:06 113 135/88 12/02/19 14:00 111 19 135/88 (104) 100 12/02/19 13:00 108 20 143/72 (95) 100 I&O Intake and Output 12/02/19 12/03/19 19:00 07:00 Intake Total 700 ml Output Total 550 ml Balance 150 ml Intake Oral 600 ml IV Total 100 ml Output Urine Total 550 ml # Voids 3 # Bowel Movements 4 4 Cardiovascular: RSR Respiratory: clear Abdomen: soft, non-tender, present bowel sounds Extremities: no edema, no tenderness, no cyanosis Laboratory Tests Test 12/02/19 20:56 12/03/19 04:56 12/03/19 08:00 12/03/19 11:25 POC Whole Blood Glucose 148 MG/DL (74-106) H 158 MG/DL (74-106) H 145 MG/DL (74-106) H White Blood Count 8.6 K/UL (4.8-10.8) Red Blood Count 4.26 M/UL (4.70-6.10) L Hemoglobin 12.5 G/DL (14.2-18.0) L Hematocrit 39.8 % (42.0-52.0) L Mean Corpuscular Volume 93 FL (80-99) Mean Corpuscular Hemoglobin 29.4 PG (27.0-31.0) Mean Corpuscular Hemoglobin Concent 31.5 G/DL (32.0-36.0) L Red Cell Distribution Width 14.3 % (11.6-14.8) Platelet Count 369 K/UL (150-450) Mean Platelet Volume 8.0 FL (6.5-10.1) Neutrophils (%) (Auto) 79.0 % (45.0-75.0) H Lymphocytes (%) (Auto) 16.6 % (20.0-45.0) L Monocytes (%) (Auto) 2.3 % (1.0-10.0) Eosinophils (%) (Auto) 1.4 % (0.0-3.0) Basophils (%) (Auto) 0.7 % (0.0-2.0) Erythrocyte Sedimentation Rate 66 MM/HR (0-20) H Sodium Level 140 MMOL/L (136-145) Potassium Level 4.7 MMOL/L (3.5-5.1) Chloride Level 103 MMOL/L (98-107) Carbon Dioxide Level 31 MMOL/L (21-32) Anion Gap 6 mmol/L (5-15) Blood Urea Nitrogen 34 mg/dL (7-18) H Creatinine 1.2 MG/DL (0.55-1.30) Estimat Glomerular Filtration Rate > 60 mL/min (>60) Glucose Level 196 MG/DL (74-106) H Calcium Level 9.1 MG/DL (8.5-10.1) Magnesium Level 1.7 MG/DL (1.8-2.4) L Total Creatine Kinase 29 U/L (26-308) C-Reactive Protein, Quantitative 5.9 mg/dL (0.00-0.90) H Digoxin Level 0.5 NG/ML (0.5-2.0) HIV (1&2) Antibody Rapid Negative (NEGATIVE) Plan Problems: (1) Leukocytosis Assessment & Plan: 64-year-old male A. fib RVR in ICU identified to have leukocytosis etiology unknown. Work-up currently pending. UA ordered. Renal ultrasound noted. Awaiting microbiology and lab results. No abscess or abdominal etiology identified fortunately. We will follow with recommendations. improved sinus now comfortable labs improved no n/v/f/c d/c planning Thank you for letting participate patient's care Downgraded continues to have arrhythmias Cardiology input appreciated (2) Rheumatoid arthritis (3) Diabetes (4) CKD (chronic kidney disease) Assessment & Plan: Right kidney: Right kidney 10.6cm No stones. No hydronephrosis. Left kidney: Left kidney 12 No stones. No hydronephrosis. Bladder: Urinary bladder volume 145mL. Other findings: No postvoid residual able to be calculated as patient had voided prior to exam and was not able to void following initial imaging. IMPRESSION: 1. No postvoid residual able to be calculated as patient had voided prior to exam and was not able to void following initial imaging. 2. Otherwise unremarkable study. 3. Urinary bladder volume 145mL. (5) Anemia in CKD (chronic kidney disease) (6) A-fib (7) Chronic systolic heart failure Rahul Alexandre Dec 03, 2019 12:03
[2019-12-03] MEDS ORDERED: Digoxin 0.5mg/2ml Inj IVP SCH (13:00)
[2019-12-03 16:00] VITALS: BP 164/93
--- NOTE | 2019-12-03 17:00 | NUR ---
NURSE NOTES: Dr. Pascual made aware of episodes of bigeminy and aflutter. No new orders.
--- NOTE | 2019-12-03 19:21 | NUR ---
HAND-OFF: Report given to CHANDANA Carrera.
--- NOTE | 2019-12-03 19:41 | NUR ---
NURSE NOTES: Report received from CHANDANA Martin. A/O x 4. Observed pt sitting on the bed. SR on child monitor at this time. On room air with no distress noted at this time. IV on R FA 22G, SL, asymptomatic. Bed in the lowest position. Side rails up x3. Call light within reach. Will continue to monitor.
[2019-12-03 20:00] VITALS: BP_SYST 148; BP_DIAS 78; BP_DIAS 8
--- NOTE | 2019-12-03 20:09 | Cardiac Electrophysiology PN ---
Assessment/Plan Assessment/Plan 1. Atrial flutter with rapid ventricular response. On Eliquis 5 mg b.i.d. Echocardiogram EF 40% On Lopressor 100 po q 8 hr and Dig 0.125 daily. Give additional 0.25 iv Dig and check Dig level in am again 2. Hypertension. Continue Lopressor 100 tid 3. CHF EF 40%. Could be tachy myopathy on Dig, Metoprolol. When HR stabilized Add hydralazine and isordil. Avoid ACEI, ARB for renal failure 4. Troponin leak, likely due to fib/rvr and renal failure. 5. Renal failure with creatinine of 2.4. Cr. Improved to 1.3 6. Rheumatoid arthritis. 7. Diabetes, on metformin. DW RN and Niece Subjective Subjective Still in atrial fib with RVR 140s despite Lopressor 100 q 8hr and Dig. Objective Last 24 Hour Vital Signs Date Time Temp Pulse Resp B/P (MAP) Pulse Ox O2 Delivery O2 Flow Rate FiO2 12/03/19 16:00 74 12/03/19 16:00 Room Air 12/03/19 16:00 97.5 81 20 164/93 (116) 96 12/03/19 13:29 120 147/92 12/03/19 13:27 94 12/03/19 12:00 Room Air 12/03/19 12:00 99 12/03/19 12:00 97.9 120 20 147/92 (110) 97 12/03/19 10:01 107 12/03/19 09:55 109 12/03/19 08:00 98.0 109 18 132/93 (106) 96 12/03/19 05:48 98 150/94 12/03/19 04:00 98 12/03/19 04:00 96.1 94 20 150/94 (112) 95 12/03/19 04:00 Nasal Cannula 2.0 12/03/19 00:00 97.9 90 20 121/72 (88) 95 12/03/19 00:00 79 12/03/19 00:00 Nasal Cannula 2.0 12/02/19 21:38 63 140/77 Intake and Output 12/02/19 12/03/19 19:00 07:00 Intake Total 700 ml Output Total 550 ml Balance 150 ml Intake Oral 600 ml IV Total 100 ml Output Urine Total 550 ml # Voids 3 # Bowel Movements 4 4 Laboratory Tests Test 12/02/19 20:56 12/03/19 04:56 12/03/19 08:00 12/03/19 11:25 POC Whole Blood Glucose 148 MG/DL (74-106) H 158 MG/DL (74-106) H 145 MG/DL (74-106) H White Blood Count 8.6 K/UL (4.8-10.8) Red Blood Count 4.26 M/UL (4.70-6.10) L Hemoglobin 12.5 G/DL (14.2-18.0) L Hematocrit 39.8 % (42.0-52.0) L Mean Corpuscular Volume 93 FL (80-99) Mean Corpuscular Hemoglobin 29.4 PG (27.0-31.0) Mean Corpuscular Hemoglobin Concent 31.5 G/DL (32.0-36.0) L Red Cell Distribution Width 14.3 % (11.6-14.8) Platelet Count 369 K/UL (150-450) Mean Platelet Volume 8.0 FL (6.5-10.1) Neutrophils (%) (Auto) 79.0 % (45.0-75.0) H Lymphocytes (%) (Auto) 16.6 % (20.0-45.0) L Monocytes (%) (Auto) 2.3 % (1.0-10.0) Eosinophils (%) (Auto) 1.4 % (0.0-3.0) Basophils (%) (Auto) 0.7 % (0.0-2.0) Erythrocyte Sedimentation Rate 66 MM/HR (0-20) H Sodium Level 140 MMOL/L (136-145) Potassium Level 4.7 MMOL/L (3.5-5.1) Chloride Level 103 MMOL/L (98-107) Carbon Dioxide Level 31 MMOL/L (21-32) Anion Gap 6 mmol/L (5-15) Blood Urea Nitrogen 34 mg/dL (7-18) H Creatinine 1.2 MG/DL (0.55-1.30) Estimat Glomerular Filtration Rate > 60 mL/min (>60) Glucose Level 196 MG/DL (74-106) H Calcium Level 9.1 MG/DL (8.5-10.1) Magnesium Level 1.7 MG/DL (1.8-2.4) L Total Creatine Kinase 29 U/L (26-308) C-Reactive Protein, Quantitative 5.9 mg/dL (0.00-0.90) H Digoxin Level 0.5 NG/ML (0.5-2.0) HIV (1&2) Antibody Rapid Negative (NEGATIVE) Test 12/03/19 16:08 POC Whole Blood Glucose 184 MG/DL (74-106) H Objective HEAD AND NECK: No JVD. LUNGS: Decreased breath sounds. CARDIOVASCULAR: Irregular S1 and S2 with no gallop or murmur. ABDOMEN: Soft. EXTREMITIES: 1+ pitting edema. Tyler Pascual MD Dec 03, 2019 20:09
--- NOTE | 2019-12-03 21:00 | NUR ---
NURSE NOTES: Noted 6 beats of V-tach, asymptomatic, VS WNL. notified and no new order at this time. Will continue to monitor.
--- NOTE | 2019-12-03 21:13 | Nephrology Progress Note ---
Assessment/Plan Plan #IVÁN on CKD #Diabetic nephropathy #afib with RVR #acute on chronic CHF #HTN #IDDM #HLD - recommend lasix 40 daily on dc - replete mag and K to keep > 2.2 and 4.4 - rate control per cardiology - on digoxin - DC dilt 90 q6hr - metop 100mg TID - continue apixaban - avoid nephrotoxins - strict I&Os - daily weights Time spent 75 min - greater than 50% on care coordination and counseling Subjective ROS Limited/Unobtainable: No Constitutional: Reports: weakness HEENT: Denies: no symptoms, eye pain, blurred vision, tearing, double vision, ear pain, ear discharge, nose pain, nose congestion, throat pain, throat swelling, mouth pain, mouth swelling, other Genitourinary: Denies: no symptoms, burning, discharge, frequency, flank pain, hematuria, incontinence, pain, urgency, other Neurologic/Psychiatric: Denies: no symptoms, anxiety, depressed, emotional problems, headache, numbness, paresthesia, pre-existing deficit, seizure, tingling, tremors, weakness, other Subjective Cr stable Heart rate uptrending EF 40%] Objective Objective Last 24 Hour Vital Signs Date Time Temp Pulse Resp B/P (MAP) Pulse Ox O2 Delivery O2 Flow Rate FiO2 12/03/19 16:00 74 12/03/19 16:00 Room Air 12/03/19 16:00 97.5 81 20 164/93 (116) 96 12/03/19 13:29 120 147/92 12/03/19 13:27 94 12/03/19 12:00 Room Air 12/03/19 12:00 99 12/03/19 12:00 97.9 120 20 147/92 (110) 97 12/03/19 10:01 107 12/03/19 09:55 109 12/03/19 08:00 98.0 109 18 132/93 (106) 96 12/03/19 05:48 98 150/94 12/03/19 04:00 98 12/03/19 04:00 96.1 94 20 150/94 (112) 95 12/03/19 04:00 Nasal Cannula 2.0 12/03/19 00:00 97.9 90 20 121/72 (88) 95 12/03/19 00:00 79 12/03/19 00:00 Nasal Cannula 2.0 12/02/19 21:38 63 140/77 Intake and Output 12/02/19 12/03/19 19:00 07:00 Intake Total 700 ml Output Total 550 ml Balance 150 ml Intake Oral 600 ml IV Total 100 ml Output Urine Total 550 ml # Voids 3 # Bowel Movements 4 4 Laboratory Tests 12/03/19 04:56: POC Whole Blood Glucose 158H 12/03/19 08:00: White Blood Count 8.6, Red Blood Count 4.26L, Hemoglobin 12.5L, Hematocrit 39.8L , Mean Corpuscular Volume 93, Mean Corpuscular Hemoglobin 29.4, Mean Corpuscular Hemoglobin Concent 31.5L, Red Cell Distribution Width 14.3, Platelet Count 369, Mean Platelet Volume 8.0, Neutrophils (%) (Auto) 79.0H, Lymphocytes (%) (Auto) 16.6L, Monocytes (%) (Auto) 2.3, Eosinophils (%) (Auto) 1.4, Basophils (%) (Auto) 0.7, Erythrocyte Sedimentation Rate 66H, Sodium Level 140, Potassium Level 4.7, Chloride Level 103, Carbon Dioxide Level 31, Anion Gap 6, Blood Urea Nitrogen 34H, Creatinine 1.2, Estimat Glomerular Filtration Rate > 60, Glucose Level 196H, Calcium Level 9.1, Magnesium Level 1.7L, Total Creatine Kinase 29, C-Reactive Protein, Quantitative 5.9H, Digoxin Level 0.5, HIV (1&2) Antibody Rapid Negative 12/03/19 11:25: POC Whole Blood Glucose 145H 12/03/19 16:08: POC Whole Blood Glucose 184H 12/03/19 20:10: POC Whole Blood Glucose 233H Height (Feet): 5 Height (Inches): 5.00 Weight (Pounds): 185 Berenice Pimentel M.D. Dec 03, 2019 21:13
[2019-12-04] VITALS: BP 133/67
--- NOTE | 2019-12-04 00:25 | NUR ---
NURSE NOTES: No acute distress noted at this time. Pt sleeping in the bed, calm and comfortable. Denies any pain at this time. Will continue to monitor .
[2019-12-04 04:00] VITALS: BP 103/64
[2019-12-04] MEDS: Metoprolol Tartrate 100mg tab ORAL SCH ×2 (06:48→13:23)
[2019-12-04] MEDS: NovoLOG Insulin Flexpen SUBQ SCH ×2 (06:49→11:46)
--- NOTE | 2019-12-04 07:00 | NUR ---
HAND-OFF: Report given to CHANDANA Martin. No distress noted at this time.
--- NOTE | 2019-12-04 07:51 | NUR ---
NURSE NOTES: Received report from CHANDANA Carrera. Pt A/O x4. No s/s of acute respiratory and cardiac distress. No c/o pain. SL on right FA, asymptomatic, patent and intact. Currently on room air. Bed in low position, side rails up x2 and call light within reach. Will continue to monitor.
[2019-12-04 08:00] VITALS: BP 155/93
[2019-12-04] MEDS: Eliquis 2.5mg tablet ORAL SCH (08:27)
[2019-12-04] MEDS: Digoxin 0.125mg tab ORAL SCH (08:27)
[2019-12-04] MEDS: LEFLUNOMIDE 20 MG ORAL SCH (08:27)
--- NOTE | 2019-12-04 08:56 | General Progress Note ---
Assessment/Plan Problem List: (1) A-fib ICD Codes: I48.91 - Unspecified atrial fibrillation SNOMED: 88673869 (2) Anemia in CKD (chronic kidney disease) ICD Codes: N18.9 - Chronic kidney disease, unspecified; D63.1 - Anemia in chronic kidney disease SNOMED: 971993521 (3) CKD (chronic kidney disease) ICD Codes: N18.9 - Chronic kidney disease, unspecified SNOMED: 823277405 (4) Diabetes ICD Codes: E11.9 - Type 2 diabetes mellitus without complications SNOMED: 27958985 (5) Rheumatoid arthritis ICD Codes: M06.9 - Rheumatoid arthritis, unspecified SNOMED: 60235665 (6) Chronic systolic heart failure ICD Codes: I50.22 - Chronic systolic (congestive) heart failure SNOMED: 563754008 (7) IVÁN (acute kidney injury) ICD Codes: N17.9 - Acute kidney failure, unspecified SNOMED: 3435078, 32993602 (8) Hyperlipidemia ICD Codes: E78.5 - Hyperlipidemia, unspecified SNOMED: 68016479 Status: doing well, progressing Assessment/Plan: 64 year old gentleman with a past medical history of rheumatoid arthritis and non insulin dependant DM comes to the hospital from PCP office with palpitations found to be in A. fib RVR. #Atrial flutter/fibrillation with rapid ventricular response #Palpitations #HTN -Not a candidate for cardioversion -stop diltiazem, continue Metoprolol especially in light of decreased systolic function as below -continue Eliquis 2.5mg BID for CHADsVASc 2 - continue digoxin, monitoring digoxin level daily -2D echo reviewed, has evidence of decreased systolic function -Consulted Cardiology, appreciate recommendations - continue monitoring on telemetry - optimize electrolytes #HLD #Chronic systolic heart failure with EF 40%: etiology uncertain. differential includes tachycardia mediated cardiomyopathy, CAD #Orthopnea #Elevated BNP -2D echo results noted -Strict Is and Os, daily weights -Fluid and salt restriction - will discuss with Cardiology regarding timing/dose of starting maintenance lasix upon discharge - sent TSH, lipid panel, A1c. A1c shows poorly controlled T2DM with A1c 8.1. Lipid panel with LDL > 190 and in light of risk factors, ASCVD is elevated making him a candidate for high intensity statin. TSH wnl - LFT and CK within normal limits. Patient would likely benefit from starting of a statin as an outpatient - patient would likely benefit from evaluation of CAD as an outpatient #DM type 2 - holding home metformin while inpatient, will resume for discharge -Carb Consistent Diet -HgA1c #IVÁN on CKD - Hypertensive Vs. Diabetic Nephropathy vs pre-renal from poor forward flow from Afib RVR #Anemia of CKD -Hold nephrotoxic medications -Nephrology following, appreciate recommendations #Rheumatoid arthritis -resume home leflunomide #Dispo: patient to be discharged home once afib RVR resolved. Patient to follow up with PCP Dr. Pimentel as an outpatient. I anticipate he will stay 1-2 more days. Of note, for cross-coverage purposes, patient fully has capacity to leave against medical advice if he desires, but we would still recommend he stay for cardiac monitoring I spent 35 min with majority face to face time (>50%) with patient, coordinated with consultants. Discussed with nursing staff. Subjective Date patient seen: Dec 04, 2019 Time patient seen: 07:00 Constitutional: Denies: chills, fever HEENT: Denies: eye pain, blurred vision, double vision Cardiovascular: Denies: chest pain, edema, irregular heart rate Respiratory: Denies: cough, orthopnea, shortness of breath Gastrointestinal/Abdominal: Denies: abdomen distended, abdominal pain, nausea, vomiting Genitourinary: Denies: discharge, frequency Neurologic/Psychiatric: Denies: anxiety, depressed Endocrine: Denies: flushing, intolerance to cold, unexplained weight loss Hematologic/Lymphatic: Denies: anemia, easy bleeding, easy bruising Allergies: Coded Allergies: No Known Allergies (Unverified , 11/29/19) Subjective patient feeling well. he denies feeling any symptoms including palpitations, dizziness, weakness including with ambulation. he again insists that he must go home today. he is amenable to ambulating and observing heart rate Objective Last 24 Hour Vital Signs Date Time Temp Pulse Resp B/P (MAP) Pulse Ox O2 Delivery O2 Flow Rate FiO2 12/04/19 08:27 84 12/04/19 08:00 97.5 84 18 155/93 (113) 98 12/04/19 06:48 90 153/89 12/04/19 04:00 97.5 70 20 103/64 (77) 95 12/04/19 04:00 75 12/04/19 00:00 97.5 80 20 133/67 (89) 95 12/04/19 00:00 56 12/03/19 21:48 82 148/78 12/03/19 21:00 Room Air 12/03/19 20:00 98.0 78 20 148/78 (101) 97 12/03/19 20:00 96 12/03/19 16:00 74 12/03/19 16:00 Room Air 12/03/19 16:00 97.5 81 20 164/93 (116) 96 12/03/19 13:29 120 147/92 12/03/19 13:27 94 12/03/19 12:00 Room Air 12/03/19 12:00 99 12/03/19 12:00 97.9 120 20 147/92 (110) 97 12/03/19 10:01 107 12/03/19 09:55 109 Intake and Output 12/03/19 12/04/19 19:00 07:00 Intake Total 360 ml 200 ml Balance 360 ml 200 ml Intake Oral 360 ml 200 ml # Voids 4 2 Laboratory Tests 12/03/19 11:25: POC Whole Blood Glucose 145H 12/03/19 16:08: POC Whole Blood Glucose 184H 12/03/19 20:10: POC Whole Blood Glucose 233H Height (Feet): 5 Height (Inches): 5.00 Weight (Pounds): 182 General Appearance: WD/WN, no apparent distress EENT: PERRL/EOMI, normal ENT inspection, pharynx normal Neck: non-tender, normal alignment, supple Cardiovascular: normal peripheral pulses, normal rate, no JVD, irregularly irregular Respiratory/Chest: chest wall non-tender, lungs clear, normal breath sounds, no respiratory distress Abdomen: normal bowel sounds, non tender, soft, no mass Pelvis: no active bleeding Extremities: normal range of motion, normal inspection Edema: no edema noted Arm (L), no edema noted Arm (R), no edema noted Leg (L), no edema noted Leg (R), no edema noted Pedal (L), no edema noted Pedal (R) Neurologic: no motor/sensory deficits, alert, oriented x 3, responsive, normal mood/affect Skin: normal pigmentation, warm/dry Maurice Dunham M.D. Dec 04, 2019 08:56
[2019-12-04 10:41] LABS: ANION GAP 5 mmol/L (5-15); BLOOD UREA NITROGEN 34 mg/dL (7-18); CARBON DIOXIDE 31 MMOL/L (21-32); CHLORIDE 101 MMOL/L (98-107); CREATININE 1.2 MG/DL (0.55-1.30); PHOSPHORUS 3.4 MG/DL (2.5-4.9); POTASSIUM 4.8 MMOL/L (3.5-5.1); SODIUM 137 MMOL/L (136-145)
[2019-12-04 12:00] VITALS: BP 142/81
--- NOTE | 2019-12-04 12:01 | Surgery Progress Note ---
Surgery Progress Note Subjective Additional Comments no acute events comfortable tolerating diet stable Objective Last 24 Hour Vital Signs Date Time Temp Pulse Resp B/P (MAP) Pulse Ox O2 Delivery O2 Flow Rate FiO2 12/04/19 09:00 Room Air 12/04/19 08:27 84 12/04/19 08:00 88 12/04/19 08:00 97.5 84 18 155/93 (113) 98 12/04/19 06:48 90 153/89 12/04/19 04:00 97.5 70 20 103/64 (77) 95 12/04/19 04:00 75 12/04/19 00:00 97.5 80 20 133/67 (89) 95 12/04/19 00:00 56 12/03/19 21:48 82 148/78 12/03/19 21:00 Room Air 12/03/19 20:00 98.0 78 20 148/78 (101) 97 12/03/19 20:00 96 12/03/19 16:00 74 12/03/19 16:00 Room Air 12/03/19 16:00 97.5 81 20 164/93 (116) 96 12/03/19 13:29 120 147/92 12/03/19 13:27 94 I&O Intake and Output 12/03/19 12/04/19 19:00 07:00 Intake Total 360 ml 200 ml Balance 360 ml 200 ml Intake Oral 360 ml 200 ml # Voids 4 2 Cardiovascular: RSR Respiratory: clear Abdomen: soft, non-tender, present bowel sounds Extremities: no edema, no tenderness, no cyanosis Laboratory Tests Test 12/03/19 16:08 12/03/19 20:10 12/04/19 09:50 12/04/19 11:11 POC Whole Blood Glucose 184 MG/DL (74-106) H 233 MG/DL (74-106) H 249 MG/DL (74-106) H Sodium Level 137 MMOL/L (136-145) Potassium Level 4.8 MMOL/L (3.5-5.1) Chloride Level 101 MMOL/L (98-107) Carbon Dioxide Level 31 MMOL/L (21-32) Anion Gap 5 mmol/L (5-15) Blood Urea Nitrogen 34 mg/dL (7-18) H Creatinine 1.2 MG/DL (0.55-1.30) Estimat Glomerular Filtration Rate > 60 mL/min (>60) Glucose Level 203 MG/DL (74-106) H Calcium Level 9.0 MG/DL (8.5-10.1) Phosphorus Level 3.4 MG/DL (2.5-4.9) Magnesium Level 1.9 MG/DL (1.8-2.4) Digoxin Level 1.7 NG/ML (0.5-2.0) Plan Problems: (1) Leukocytosis Assessment & Plan: 64-year-old male A. fib RVR in ICU identified to have leukocytosis etiology unknown. Work-up currently pending. UA ordered. Renal ultrasound noted. Awaiting microbiology and lab results. No abscess or abdominal etiology identified fortunately. We will follow with recommendations. improved sinus now comfortable labs improved no n/v/f/c d/c planning Thank you for letting participate patient's care Downgraded continues to have arrhythmias Cardiology input appreciated (2) Rheumatoid arthritis (3) Diabetes (4) CKD (chronic kidney disease) Assessment & Plan: Right kidney: Right kidney 10.6cm No stones. No hydronephrosis. Left kidney: Left kidney 12 No stones. No hydronephrosis. Bladder: Urinary bladder volume 145mL. Other findings: No postvoid residual able to be calculated as patient had voided prior to exam and was not able to void following initial imaging. IMPRESSION: 1. No postvoid residual able to be calculated as patient had voided prior to exam and was not able to void following initial imaging. 2. Otherwise unremarkable study. 3. Urinary bladder volume 145mL. (5) Anemia in CKD (chronic kidney disease) (6) A-fib (7) Chronic systolic heart failure Rahul Alexandre Dec 04, 2019 12:01
--- NOTE | 2019-12-04 13:10 | Nephrology Progress Note ---
Assessment/Plan Plan #IVÁN on CKD #Diabetic nephropathy #afib with RVR #acute on chronic CHF #HTN #IDDM #HLD - recommend lasix 40 daily on dc - replete mag and K to keep > 2.2 and 4.4 - rate control per cardiology - on digoxin - DC dilt 90 q6hr - metop 100mg TID - continue apixaban - avoid nephrotoxins - strict I&Os - daily weights Time spent 75 min - greater than 50% on care coordination and counseling Subjective Subjective Cr stable Heart rate uptrending EF 40%] Objective Objective Last 24 Hour Vital Signs Date Time Temp Pulse Resp B/P (MAP) Pulse Ox O2 Delivery O2 Flow Rate FiO2 12/04/19 12:00 97.5 92 22 142/81 (101) 97 12/04/19 09:00 Room Air 12/04/19 08:27 84 12/04/19 08:00 88 12/04/19 08:00 97.5 84 18 155/93 (113) 98 12/04/19 06:48 90 153/89 12/04/19 04:00 97.5 70 20 103/64 (77) 95 12/04/19 04:00 75 12/04/19 00:00 97.5 80 20 133/67 (89) 95 12/04/19 00:00 56 12/03/19 21:48 82 148/78 12/03/19 21:00 Room Air 12/03/19 20:00 98.0 78 20 148/78 (101) 97 12/03/19 20:00 96 12/03/19 16:00 74 12/03/19 16:00 Room Air 12/03/19 16:00 97.5 81 20 164/93 (116) 96 12/03/19 13:29 120 147/92 12/03/19 13:27 94 Intake and Output 12/03/19 12/04/19 19:00 07:00 Intake Total 360 ml 200 ml Balance 360 ml 200 ml Intake Oral 360 ml 200 ml # Voids 4 2 Laboratory Tests 12/03/19 16:08: POC Whole Blood Glucose 184H 12/03/19 20:10: POC Whole Blood Glucose 233H 12/04/19 09:50: Sodium Level 137, Potassium Level 4.8, Chloride Level 101, Carbon Dioxide Level 31, Anion Gap 5, Blood Urea Nitrogen 34H, Creatinine 1.2, Estimat Glomerular Filtration Rate > 60, Glucose Level 203H, Calcium Level 9.0, Phosphorus Level 3.4, Magnesium Level 1.9, Digoxin Level 1.7 12/04/19 11:11: POC Whole Blood Glucose 249H Height (Feet): 5 Height (Inches): 5.00 Weight (Pounds): 182 Berenice Pimentel M.D. Dec 04, 2019 13:10
[2019-12-04 13:23] VITALS: BP 142/81
[2019-12-04] MEDS ORDERED: Digoxin ORAL (13:23)
[2019-12-04] MEDS ORDERED: LEFLUNOMIDE20 MG PO (13:23)
[2019-12-04] MEDS ORDERED: METFORMIN HCL1000 M1 ORAL (13:23)
[2019-12-04] MEDS ORDERED: ELIQUIS2.5 MG ORAL (13:23)
[2019-12-04] MEDS ORDERED: METOPROLOL TAR100 M1 ORAL (13:23)
--- NOTE | 2019-12-04 13:25 | Discharge Instructions ---
Discharge Instructions Discharge Instructions Follow up with: PCP Dr. Pimentel Call MD/Return to Hospital if: palpitations, tremors, chest pain, shortness of breath, weakness Diet: cardiac 2 GM Na, low fat Resume Normal Activity?: Yes Activity: resume normal activities Follow Up Orders Please call Dr. Berenice Pimentel, PCP, to set up an appointment this coming Thursday. You will need a [employer] Ball Molder to follow you outpatient and Dr. Pimentel can help you get this established For Congestive Heart Failure Reminder Report to your physician any weight gain of 5 pounds or more in one week. Maurice Dunham M.D. Dec 04, 2019 13:25
--- NOTE | 2019-12-04 13:49 | Discharge Summary ---
Discharge Summary Hospital Course Date of Admission Nov 29, 2019 at 14:25 Date of Discharge 12/04/2019 2 PM Admitting Diagnosis A fib rvr Reason for Hospitalization: uncontrolled heart rate HPI 64 year old gentleman with a past medical history of rheumatoid arthritis and non insulin dependant DM comes to the hospital from PCP office with palpitations found to be in A. fib RVR. He first noticed palpitations about a month prior to admission that became gradually more frequent. This prompted him to go see his PCP. In the office his heart rate was found to be in the 150s. Patient stated he has never been on a medication for HTN but used some of his family member's medication if his blood pressure measures high. He's had no recent illnesses and his po intake had been normal. He had no chest pain or swelling in the legs. His PCP manages his RA with Leflunomide and DM with Metformin. Consultations Nephrology - Dr. Pimentel Cardiology - Dr. Pascual Procedures N/A Hospital Course 64 year old gentleman with a past medical history of rheumatoid arthritis and non insulin dependant DM comes to the hospital from PCP office with palpitations found to be in A. fib RVR. He was evaluated by Cardiology and initially required diltiazem drip in ICU, but eventually was able to be titrated down to oral medications. TTE showed EF of 40% and his tachycardia was controlled on digoxin and metoprolol. Given elevated stroke risk, he was started on Eliquis which he tolerated well. His IVÁN improved with control of his atrial fibrillation. He was noted to have leukocytosis on admission, which resolved off antibiotics, thought possibly a stress reaction. By date of discharge, he was afebrile without any dysuria, cough, shortness of breath, diarrhea, abdominal pain. He was also independently ambulatory without tachycardia, shortness of breath, or chest pain. He is discharged to follow up with Dr. Pimentel, his PCP and [employer] Supervisor, closely. Other medical problems addressed during admission: #Atrial flutter/fibrillation with rapid ventricular response #Palpitations #HTN -Not a candidate for cardioversion -stop diltiazem, continue Metoprolol especially in light of decreased systolic function as below -continue Eliquis 2.5mg BID for CHADsVASc 2 - continue digoxin, monitoring digoxin level daily -2D echo reviewed, has evidence of decreased systolic function -Consulted Cardiology, appreciate recommendations - continue monitoring on telemetry - optimize electrolytes #HLD #Chronic systolic heart failure with EF 40%: etiology uncertain. differential includes tachycardia mediated cardiomyopathy, CAD #Orthopnea #Elevated BNP -2D echo results noted -Strict Is and Os, daily weights -Fluid and salt restriction - will discuss with Cardiology regarding timing/dose of starting maintenance lasix upon discharge - sent TSH, lipid panel, A1c. A1c shows poorly controlled T2DM with A1c 8.1. Lipid panel with LDL > 190 and in light of risk factors, ASCVD is elevated making him a candidate for high intensity statin. TSH wnl - LFT and CK within normal limits. Patient would likely benefit from starting of a statin as an outpatient - patient would likely benefit from evaluation of CAD as an outpatient #DM type 2 - holding home metformin while inpatient, will resume for discharge -Carb Consistent Diet -HgA1c #IVÁN on CKD - Hypertensive Vs. Diabetic Nephropathy vs pre-renal from poor forward flow from Afib RVR #Anemia of CKD -Hold nephrotoxic medications -Nephrology following, appreciate recommendations #Rheumatoid arthritis -resume home leflunomide I spent 40 min with majority face to face time (>50%) with patient for this discharge, coordinated with consultants. Discussed with nursing staff. Discharge Medications New Medications: Apixaban (Eliquis) 2.5 Mg Tablet 2.5 MG ORAL BID, #60 TAB [Digoxin] () 0.125 MG TAB 0.125 MG ORAL DAILY, #30 TAB Metoprolol Tartrate* (Metoprolol Tartrate*) 100 Mg Tablet 100 MG ORAL Q8HR, #90 TAB Continued Medications: Leflunomide (Leflunomide) 20 Mg Tablet 20 MG PO DAILY for Rheumatoid Arthritis, #30 TAB (This prescription has been renewed) Metformin Hcl* (Metformin Hcl*) 1,000 Mg Tablet 1000 MG ORAL TWICE A DAY for DM, #60 TAB (This prescription has been renewed) Discharge Condition Upon Discharge: improving, stable Discharge Vital Signs Last Vital Signs Date Time Temp Pulse Resp B/P (MAP) Pulse Ox O2 Delivery O2 Flow Rate FiO2 12/04/19 13:23 92 142/81 12/04/19 12:00 97.5 22 97 12/04/19 09:00 Room Air 12/03/19 04:00 2.0 Discharge Disposition Patient was discharged to Discharge Diagnoses: (1) A-fib (2) Chronic systolic heart failure (3) IVÁN (acute kidney injury) (4) Leukocytosis (5) CKD (chronic kidney disease) (6) Anemia in CKD (chronic kidney disease) (7) Diabetes (8) Rheumatoid arthritis (9) Hyperlipidemia (10) Former cigarette smoker Discharge Instructions Discharge Instructions Follow up with: PCP Dr. Loren Monahan MD/Return to Hospital if: palpitations, tremors, chest pain, shortness of breath, weakness Activity: resume normal activities Maurice Dunham M.D. Dec 04, 2019 13:49
--- NOTE | 2019-12-04 14:00 | NUR ---
NURSE NOTES: Received d/c home order. Will finish second bag of magnesium sulfate.Will continue with discharge papers.
--- NOTE | 2019-12-04 14:04 | NUR ---
CASE MANAGEMENT:REVIEW 12/04/19 SI: AFIB W/RVR. CKD. CHF 97.5 92 22 142/81 97% ON RA GLUCOSE+203 IS: IV MAG SULFATE Q1HR X2 BAGS (MAG LEVEL WAS 1.7 YESTERDAY) ELIQUIS PO BID DIGOXIN PO QD LOPRESSOR PO Q8HRS SS INSULIN AC+HS : TELEMETRY STATUS DCP: FROM HOME PLAN: DISCHARGE HOME TODAY
--- NOTE | 2019-12-04 15:21 | NUR ---
NURSE NOTES: Gave pt d/c instructions and prescriptions. Removed saline lock from right forearm and removed telemetry box. No sigh of acute distress. No c/o pain. Pt picked up by via private vehicle.
--- NOTE | 2019-12-06 17:01 | NUR ---
*-* INSURANCE *-* DISCHARGE SUMMARY HAS BEEN FAXED [facility] AUTH#[id number] P [phone] F [phone]
== END 2019-12-04 15:15 | disposition home or self-care (01) | DRG 201 ==
LOC: EMR 13:55 → 2E 14:25 → EDBEDREQ 15:26 → 2E 15:52 → ICU 17:56 → 2E 12-02 18:08
DX: I48.91 Unspecified atrial fibrillation (principal); N17.9 Acute kidney failure, unspecified; I50.22 Chronic systolic (congestive) heart failure; I13.0 Hypertensive heart and chronic kidney disease with heart failure and stage 1 through stage 4 chronic kidney disease, or unspecified chronic kidney disease; N18.9 Chronic kidney disease, unspecified; D63.1 Anemia in chronic kidney disease; M06.9 Rheumatoid arthritis, unspecified; E11.22 Type 2 diabetes mellitus with diabetic chronic kidney disease; E11.21 Type 2 diabetes mellitus with diabetic nephropathy; Z87.891 Personal history of nicotine dependence; R06.01 Orthopnea; Z79.84 Long term (current) use of oral hypoglycemic drugs; E78.5 Hyperlipidemia, unspecified
CPT/HCPCS: 36415; 71045; 76770; 80048; 80053; 80061; 80162; 80307; 81003; 82044; 82550; 82570; 82728; 82962; 83036; 83540; 83550; 83605; 83735; 83880; 84100; 84300; 84439; 84443; 84481; 84484; 85007; 85025; 85610; 85651; 85730; 86140; 86703; 87081; 93005; 93306; 96361; 96374; 96376; 99291; J1815; J7030; J8499